=== PATIENT | male | born 1940 | race Caucasian/White ===

== ENCOUNTER → 2016-09-23 | Outpatient (CLI) | payer MEDICARE ==
[~2016-09-23] MED LIST: ASP81TEC PO; BENA10TA PO; CEPH500C PO; CLOP75TA PO; DICL75TA2 PO; FLUT16SP22 NSEACH; HYDR-34 PO; PRAV40TA PO; PRAV80TA2 PO; PRV20T PO; TAMS0.4C2 PO; TRAM50TA2 PO
[2016-09-23 07:53] LABS: BASOPHILS # (AUTO) 0.1 10^3/uL (0.0-0.1); BASOPHILS % (AUTO) 1 % (0-10); EOSINOPHILS % (AUTO) 0 % (0-10); LYMPHOCYTES # (AUTO) 2.7 X 10^3 (1.0-4.0); LYMPHOCYTES % (AUTO) 26 % (12-44); MEAN CORPUSCULAR HEMOGLOBIN 32 PG (25-34); MEAN CORPUSCULAR HGB CONC 35 G/DL (32-36); MEAN CORPUSCULAR VOLUME 93 FL (80-99); MEAN PLATELET VOLUME 8.7 FL (7.4-10.4); MONOCYTES % (AUTO) 10 % (0-12); NEUTROPHILS # (AUTO) 6.8 X 10^3 (1.8-7.8); NEUTROPHILS % (AUTO) 64 % (42-75); PLATELET COUNT 310 10^3/uL (130-400); RED BLOOD COUNT 4.56 10^6/uL (4.35-5.85); RED CELL DISTRIBUTION WIDTH 12.8 % (10.0-14.5); WHITE BLOOD COUNT 10.6 10^3/uL (4.3-11.0)
[2016-09-23 08:13] LABS: ALANINE AMINOTRANSFERASE 73 U/L (0-55); ALBUMIN 4.1 G/DL (3.2-4.5); ANION GAP 10 MMOL/L (5-14); ASPARTATE AMINO TRANSFERASE 45 U/L (5-34); BILIRUBIN,TOTAL 0.9 MG/DL (0.1-1.0); BLOOD UREA NITROGEN 16 MG/DL (7-18); BUN/CREATININE RATIO 16; CALCIUM 9.6 MG/DL (8.5-10.1); CARBON DIOXIDE 23 MMOL/L (21-32); CHLORIDE 106 MMOL/L (98-107); CHOLESTEROL 115 MG/DL (< 200); CREATININE SERUM 0.98 MG/DL (0.60-1.30); DIRECT LDL 56 MG/DL (1-129); GFR ESTIMATED > 60; GLUCOSE 104 MG/DL (70-105); POTASSIUM 4.2 MMOL/L (3.6-5.0); SODIUM 139 MMOL/L (135-145); TOTAL PROTEIN 6.9 G/DL (6.4-8.2); TRIGLYCERIDES 123 MG/DL (<150); VLDL CHOLESTEROL 25 MG/DL (5-40)
[2016-09-23 12:11] LABS: THYROID STIMULATING HORMONE 2.22 UIU/ML (0.35-4.94)
== END ==
LOC: LAB 07:15
PROVIDERS: ATTEND Internal Medicine
DX: Z00.00 Encounter for general adult medical examination without abnormal findings (principal); E78.1 Pure hyperglyceridemia; R73.9 Hyperglycemia, unspecified; E03.9 Hypothyroidism, unspecified
CPT/HCPCS: 36415; 80053; 80061; 83036; 84443; 85025

== ENCOUNTER → 2016-10-14 | Outpatient (CLI) | payer MEDICARE ==
[2016-10-14 08:40] LABS: ALANINE AMINOTRANSFERASE 31 U/L (0-55); ANION GAP 7 MMOL/L (5-14); ASPARTATE AMINO TRANSFERASE 23 U/L (5-34); BILIRUBIN,TOTAL 0.9 MG/DL (0.1-1.0); BLOOD UREA NITROGEN 18 MG/DL (7-18); BUN/CREATININE RATIO 21; CARBON DIOXIDE 23 MMOL/L (21-32); CHLORIDE 108 MMOL/L (98-107); CHOLESTEROL 115 MG/DL (< 200); CREATININE SERUM 0.87 MG/DL (0.60-1.30); DIRECT LDL 48 MG/DL (1-129); GFR ESTIMATED > 60; GLUCOSE 100 MG/DL (70-105); POTASSIUM 4.1 MMOL/L (3.6-5.0); SODIUM 138 MMOL/L (135-145); TOTAL PROTEIN 6.2 G/DL (6.4-8.2); TRIGLYCERIDES 168 MG/DL (<150); VLDL CHOLESTEROL 34 MG/DL (5-40)
== END ==
LOC: LAB 08:08
PROVIDERS: ATTEND Nurse Practitioner Family
DX: E78.5 Hyperlipidemia, unspecified (principal)
CPT/HCPCS: 36415; 80053; 80061

== ENCOUNTER → 2017-03-26 | Outpatient (CLI) | payer MEDICARE ==
[2017-03-26 09:20] LABS: ALANINE AMINOTRANSFERASE 28 U/L (0-55); ALBUMIN 3.9 GM/DL (3.2-4.5); ANION GAP 7 MMOL/L (5-14); ASPARTATE AMINO TRANSFERASE 25 U/L (5-34); BILIRUBIN,TOTAL 1.1 MG/DL (0.1-1.0); BLOOD UREA NITROGEN 16 MG/DL (7-18); BUN/CREATININE RATIO 14; CALCIUM 9.1 MG/DL (8.5-10.1); CARBON DIOXIDE 23 MMOL/L (21-32); CHLORIDE 109 MMOL/L (98-107); CHOLESTEROL 127 MG/DL (< 200); CREATININE SERUM 1.11 MG/DL (0.60-1.30); DIRECT LDL 58 MG/DL (1-129); GFR ESTIMATED > 60; GLUCOSE 93 MG/DL (70-105); POTASSIUM 4.3 MMOL/L (3.6-5.0); SODIUM 139 MMOL/L (135-145); TOTAL PROTEIN 6.3 GM/DL (6.4-8.2); TRIGLYCERIDES 122 MG/DL (<150); VLDL CHOLESTEROL 24 MG/DL (5-40)
== END ==
LOC: LAB 08:18
PROVIDERS: ATTEND Internal Medicine
DX: E78.1 Pure hyperglyceridemia (principal); R73.9 Hyperglycemia, unspecified; E78.00 Pure hypercholesterolemia, unspecified
CPT/HCPCS: 36415; 80053; 80061; 83036

== ENCOUNTER 2017-05-15 23:30 | Emergency (ER) | payer MEDICARE ==
[~2017-05-15] VITALS: Ht 172.7 cm; Wt 95.3 kg
[2017-05-15 23:51] VITALS: BP 143/84
== END 2017-05-15 23:51 | disposition left against medical advice (07) ==
LOC: EDUNIT# 23:30 → ER 23:32
DX: T83.018A Breakdown (mechanical) of other urinary catheter, initial encounter (principal)
CPT/HCPCS: 99281

== ENCOUNTER → 2017-06-08 | Outpatient (CLI) | payer MEDICARE ==
[2017-06-08 09:44] LABS: ALANINE AMINOTRANSFERASE 32 U/L (0-55); ALBUMIN 3.8 GM/DL (3.2-4.5); ALKALINE PHOSPHATASE 119 U/L (40-136); BUN/CREATININE RATIO 12; CALCIUM 9.1 MG/DL (8.5-10.1); CARBON DIOXIDE 24 MMOL/L (21-32); CHLORIDE 107 MMOL/L (98-107); CHOLESTEROL 127 MG/DL (< 200); CREATININE SERUM 1.07 MG/DL (0.60-1.30); GFR ESTIMATED > 60; GLUCOSE 103 MG/DL (70-105); HDL CHOLESTEROL 42 MG/DL (40-60); POTASSIUM 4.2 MMOL/L (3.6-5.0); SODIUM 141 MMOL/L (135-145); TOTAL PROTEIN 6.3 GM/DL (6.4-8.2); TRIGLYCERIDES 139 MG/DL (<150); VLDL CHOLESTEROL 28 MG/DL (5-40)
== END ==
LOC: LAB 09:02
PROVIDERS: ATTEND Nurse Practitioner Family
DX: E78.4 Other hyperlipidemia (principal); I10 Essential (primary) hypertension
CPT/HCPCS: 36415; 80053; 80061

== ENCOUNTER → 2017-10-05 | Outpatient (CLI) | payer MEDICARE ==
[2017-10-05 08:30] LABS: BASOPHILS % (AUTO) 1 % (0-10); EOSINOPHILS % (AUTO) 0 % (0-10); HEMATOCRIT 39 % (40-54); LYMPHOCYTES # (AUTO) 2.5 X 10^3 (1.0-4.0); LYMPHOCYTES % (AUTO) 39 % (12-44); MEAN CORPUSCULAR HEMOGLOBIN 33 PG (25-34); MEAN CORPUSCULAR HGB CONC 36 G/DL (32-36); MEAN CORPUSCULAR VOLUME 93 FL (80-99); MEAN PLATELET VOLUME 8.9 FL (7.4-10.4); MONOCYTES # (AUTO) 0.6 X 10^3 (0.0-1.0); MONOCYTES % (AUTO) 9 % (0-12); NEUTROPHILS # (AUTO) 3.3 X 10^3 (1.8-7.8); NEUTROPHILS % (AUTO) 51 % (42-75); PLATELET COUNT 262 10^3/uL (130-400); RED BLOOD COUNT 4.23 10^6/uL (4.35-5.85); RED CELL DISTRIBUTION WIDTH 12.5 % (10.0-14.5); WHITE BLOOD COUNT 6.4 10^3/uL (4.3-11.0)
[2017-10-05 08:54] LABS: ALANINE AMINOTRANSFERASE 26 U/L (0-55); ALBUMIN 4.4 GM/DL (3.2-4.5); ALKALINE PHOSPHATASE 90 U/L (40-136); BILIRUBIN,TOTAL 1.6 MG/DL (0.1-1.0); BUN/CREATININE RATIO 21; CALCIUM 9.6 MG/DL (8.5-10.1); CARBON DIOXIDE 23 MMOL/L (21-32); CHLORIDE 110 MMOL/L (98-107); CHOLESTEROL 126 MG/DL (< 200); CREATININE SERUM 1.15 MG/DL (0.60-1.30); GFR ESTIMATED > 60; GLUCOSE 103 MG/DL (70-105); HDL CHOLESTEROL 45 MG/DL (40-60); POTASSIUM 4.5 MMOL/L (3.6-5.0); SODIUM 140 MMOL/L (135-145); TOTAL PROTEIN 6.5 GM/DL (6.4-8.2); TRIGLYCERIDES 126 MG/DL (<150); VLDL CHOLESTEROL 25 MG/DL (5-40)
== END ==
LOC: LAB 07:47
PROVIDERS: ATTEND Internal Medicine
DX: Z00.00 Encounter for general adult medical examination without abnormal findings (principal); E78.1 Pure hyperglyceridemia; E78.00 Pure hypercholesterolemia, unspecified; R73.9 Hyperglycemia, unspecified
CPT/HCPCS: 36415; 80053; 80061; 83036; 84443; 85025

== ENCOUNTER → 2018-04-05 | Outpatient (CLI) | payer MEDICARE ==
[2018-04-05 09:29] LABS: BUN/CREATININE RATIO 17; CALCIUM 9.7 MG/DL (8.5-10.1); CARBON DIOXIDE 22 MMOL/L (21-32); CHLORIDE 108 MMOL/L (98-107); GFR ESTIMATED > 60; GLUCOSE 103 MG/DL (70-105); POTASSIUM 4.4 MMOL/L (3.6-5.0); SODIUM 138 MMOL/L (135-145)
[2018-04-05 09:30] LABS: ALANINE AMINOTRANSFERASE 29 U/L (0-55); ALBUMIN 4.3 GM/DL (3.2-4.5); ALKALINE PHOSPHATASE 85 U/L (40-136); BILIRUBIN,TOTAL 1.5 MG/DL (0.1-1.0); CHOLESTEROL 142 MG/DL (< 200); HDL CHOLESTEROL 46 MG/DL (40-60); TOTAL PROTEIN 6.5 GM/DL (6.4-8.2); TRIGLYCERIDES 117 MG/DL (<150); VLDL CHOLESTEROL 23 MG/DL (5-40)
== END ==
LOC: LAB 08:44
PROVIDERS: ATTEND Internal Medicine
DX: Z00.00 Encounter for general adult medical examination without abnormal findings (principal); E78.00 Pure hypercholesterolemia, unspecified; E78.1 Pure hyperglyceridemia; R73.9 Hyperglycemia, unspecified
CPT/HCPCS: 36415; 80053; 80061; 83036

== ENCOUNTER → 2019-01-23 | Outpatient (CLI) | payer MEDICARE ==
[~2019-01-23] VITALS: Ht 172.7 cm; Wt 93.9 kg
[~2019-01-23] MED LIST changes: +CATHETER FLUSH 10 ML SYR IV PRN; +REGADENOSON 0.4 MG/5 ML SYR (LEXISCAN) IV ONE
[2019-01-23 09:24] VITALS: BP 130/80
[2019-01-23 09:26] VITALS: BP 143/77
--- NOTE | 2019-01-24 10:59 | STRESS TEST ---
DATE OF SERVICE: 01/23/2019 RESTING AND POST REGADENOSON TECHNETIUM-99M TETROFOSMIN SPECT CT IMAGING ORDERING PHYSICIAN: Corinne Singh APRN PRIMARY PHYSICIAN: Dr. Palafox. CLINICAL DIAGNOSES: Coronary artery disease. Baseline images were carried out after injection of 10.71 mCi of technetium-99m Tetrofosmin. This was followed by 0.4 mg regadenoson and 31 mCi of technetium-99m Tetrofosmin for stress imaging. The electrocardiogram showed sinus rhythm at baseline. There was incomplete right bundle branch block. The electrocardiogram did not change significantly with regadenoson infusion. Review of images at rest and following stress indicates some diaphragmatic attenuation seen both at rest and following regadenoson infusion. Gated images show normal regional wall motion, including the diaphragmatic wall of the left ventricle. Left ventricular ejection fraction is calculated to be 72%. Left ventricular end diastolic volume is 82 mL. TID is absent (1.04). CONCLUSIONS: 1. No evidence of significant myocardial ischemia or infarction on this study. 2. Normal regional wall motion. 3. Normal global left ventricular systolic function with a calculated ejection fraction of 72%. Job ID: [id number] DocumentID: [id number] Dictated Date: 01/24/2019 09:49:31 Packaging Technician Date: 01/24/2019 10:58:00 Dictated By: MARINO ARENAS MD, MA, FACP, FACC,
== END ==
LOC: CARD 07:08
PROVIDERS: ATTEND Nurse Practitioner Family
DX: I25.10 Atherosclerotic heart disease of native coronary artery without angina pectoris (principal); I24.0 Acute coronary thrombosis not resulting in myocardial infarction; I65.29 Occlusion and stenosis of unspecified carotid artery; E78.5 Hyperlipidemia, unspecified; I10 Essential (primary) hypertension
CPT/HCPCS: 78452; 93017

== ENCOUNTER → 2020-02-15 | Outpatient (CLI) | payer MEDICARE ==
[~2020-02-15] MED LIST changes: -CATHETER FLUSH 10 ML SYR IV PRN; -REGADENOSON 0.4 MG/5 ML SYR (LEXISCAN) IV ONE
--- NOTE | 2020-02-15 14:21 | Diagnostic Imaging Report ---
INDICATION: Chronic low back pain. TIME OF EXAM: 12:59 PM AP view of pelvis demonstrates a normal femoral acetabular alignment. Femoral head and neck are intact. Rami appear intact. No fractures are seen. Laminectomy changes lower lumbar spine are noted. IMPRESSION: No acute bony abnormality is detected. Dictated by: Dictated on workstation # [id number]
--- NOTE | 2020-02-15 14:40 | Diagnostic Imaging Report ---
INDICATION: Prior history of lumbar spine surgery with continued low back pain. TIME OF EXAM: 12:54 PM AP, lateral as well as flexion-extension views of the lumbar spine were obtained. Postop changes of decompression laminectomy L3-L5 are noted. There is normal lordotic curvature. Vertebral body heights are maintained. No acute compression fracture is seen. There is multilevel degenerative disc disease with variable disc space narrowing and marginal spurring. No definite motion is identified during flexion or extension maneuvers. Aorta is heavily calcified. IMPRESSION: Lumbar spondylosis. No acute bony abnormality is detected. No abnormal motion during flexion or extension maneuvers is identified. Dictated by: Dictated on workstation # [id number]
--- NOTE | 2020-02-15 14:44 | Diagnostic Imaging Report ---
PROCEDURE: MRI lumbar spine. TECHNIQUE: Multiplanar, multisequence MRI of the lumbar spine was performed without contrast. INDICATION: Chronic low back pain. History of prior lumbar spine surgery. COMPARISON: MRI lumbar spine without contrast 02/28/2016. FINDINGS: Grade 1 anterolisthesis of L4 on L5 and grade 1 retrolisthesis of L5 on S1. Alignment is otherwise unremarkable. Vertebral body heights are preserved. Moderate diffuse degenerative endplate changes including Modic type I degenerative endplate changes at L4-S1. Scattered small Schmorl's nodes. Postoperative findings of laminectomies at L3 through L5. No abnormal signal in the conus which terminates at L1. Normal morphology of the cauda equina. The visualized paravertebral soft tissues are unremarkable. L1-L2: Annular disc bulge and facet arthropathy result in moderate left and mild right lateral recess narrowing. There is mild spinal canal narrowing. Disc space height loss also contributes to amrrrmys-vc-kqutvd bilateral neural foraminal narrowing. L2-L3: Annular disc bulge results in mild spinal canal and moderate bilateral lateral recess narrowing. Facet arthropathy and disc space height loss result in severe left and moderate right neural foraminal narrowing. L3-L4: Spinal canal is decompressed well. Facet arthropathy, osteophytic ridging and disc space height loss results in severe left and moderate right neural foraminal narrowing. L4-L5: Spinal canal is decompressed well. Advanced facet arthropathy. Rutsfhjn-jm-nkubuk bilateral neural foraminal narrowing. L5-S1: Disc osteophyte complex and facet arthropathy result in moderate bilateral lateral recess narrowing. Spinal canal is decompressed well. Severe left and moderate right neural foraminal narrowing. IMPRESSION: 1. Laminectomies at L3 through L5 have been performed since the prior exam. The spinal canal is decompressed well at these levels. 2. Multilevel high-grade lateral recess and neural foraminal narrowing detailed above level by level. No high-grade spinal canal stenosis. 3. No acute osseous findings. Dictated by: Dictated on workstation # [id number]
== END ==
LOC: RAD 12:30
PROVIDERS: ATTEND Registered Nurse
DX: M96.1 Postlaminectomy syndrome, not elsewhere classified (principal); M48.061 Spinal stenosis, lumbar region without neurogenic claudication; M25.78 Osteophyte, vertebrae; M47.816 Spondylosis without myelopathy or radiculopathy, lumbar region
CPT/HCPCS: 72114; 72148; 72170

== ENCOUNTER 2020-08-21 06:28 | Outpatient (CLI) | payer MEDICARE ==
[~2020-08-21] VITALS: Ht 172.7 cm; Wt 84.9 kg
[~2020-08-21 06:28] MED LIST changes: +ACHD5005 PO; +ASPI-1238 PO; +ATOR40TA70 PO; +BIMA2.5D4 OD; +CIME200T14 PO; +CLOP75TA28 PO; +FINA5TAB6 PO; +LEVO50CA4 PO; +LEVO50TA6 PO; +LOSA50TA63 PO; +OXYM15SP42 NSEACH; +PANT40TA2 PO; +PRAM0.12 PO; +TMSL.4C PO
[2020-08-21] MEDS ORDERED: LEVO75TA6 PO (12:17)
== END 2020-08-21 13:49 | disposition home or self-care (01) ==
LOC: PREOP 06:28
PROVIDERS: ATTEND Surgery
DX: Z01.818 Encounter for other preprocedural examination (principal)

== ENCOUNTER 2020-08-27 11:16 | Day surgery (SDC) | payer MEDICARE ==
[2020-08-27] VITALS (20 sets, daily range): BP systolic 121–178; BP diastolic 61–97
[~2020-08-27] VITALS: Ht 172.7 cm; Wt 84.9 kg
[~2020-08-27 11:16] MED LIST changes: +LEVO75TA6 PO; +NS IV 500 ML 500 ML ONE
[2020-08-27] MEDS ORDERED: fentaNYL INJ 100 MCG/2 ML AMP IVP ONE (11:30)
[2020-08-27] MEDS ORDERED: HURRICAINE EXT TUBE (BENZOCAINE) XX PRN (11:30)
[2020-08-27] MEDS ORDERED: MIDAZOLAM 5 MG/5 ML (VERSED) VIAL IV ONE (11:30)
[2020-08-27] MEDS ORDERED: LIDOCAINE JELLY 2% 6 ML SYRINGE MM PRN (11:30)
[2020-08-27] MEDS: NS IV 500 ML 500 ML IV PRN ×2 (11:38→14:11)
--- NOTE | 2020-08-27 11:46 | Conscious Sedation/ASA ---
Conscious Sedation Pre-Proced Time 11:30 ASA Score 2 For ASA 3 and 4: Consider anesthesia and medical clearance. Also, for patients with a history of failed moderate sedation consider anesthesia. Airway Lungs Heart ASA score ASA 1: a normal healthy patient ASA 2: a patient with a mild systemic disease (mid diabetes, controlled hypertension, obesity ASA 3: a patient with a severe systemic disease that limits activity (angina, COPD, prior Myocardial infarction) ASA 4: a patient with an incapacitating disease that is a constant threat to life (CHF, renal failure) ASA 5: a moribund patient not expected to survive 24 hrs. (ruptured aneurysm) ASA 6: a declared brain- patient whose organs are being harvested. For emergent operations, add the letter E after the classification Mallampati Classification Grade 2 Sedation Plan Analgesia, Amnesia, Plan communicated to team members, Discussed options with patient/fam, Discussed risks with patient/fam The patient is an appropriate candidate to undergo the planned procedure, sedation, and anesthesia. The patient immediately re-assessed prior to indication. SANJAY MACDONALD MD Aug 27, 2020 11:46
--- NOTE | 2020-08-27 11:47 | Progress Note-Pre Operative ---
Pre-Operative Progress Note H&P Reviewed The H&P was reviewed, patient examined and no changes noted. Date Seen by Provider: Aug 27, 2020 Time Seen by Provider: 11:30 Date H&P Reviewed: Aug 27, 2020 Time H&P Reviewed: 11:30 Pre-Operative Diagnosis: anemia, fatigue, hx SANJAY Nolasco MD Aug 27, 2020 11:47
--- NOTE | 2020-08-27 11:48 | Discharge Inst-Surgical ---
D/C Lap Instructions-TORRES Follow Up Appt in 2 weeks Activity as tolerated High Fiber Diet 25g or more per day Avoid Alcohol, Caffeine, Spicy [place] and Acid foods. Drink 64 fluid oz or more of fluids per day. Symptoms to Report: Fever over 101 degree F, Nausea/Vomiting If any problems/questions: Contact your physician or go to Emergency Room SANJAY MACDONALD MD Aug 27, 2020 11:48
[2020-08-27] MEDS ORDERED: ACETAMINOPHEN 325 MG TABLET PO PRN (12:00)
[2020-08-27] MEDS ORDERED: HYDROcodone/APAP 5 MG/325 MG (LORTAB) TAB PO PRN (12:00)
[2020-08-27] MEDS ORDERED: morphine INJ 10 MG/ML 1ML (SYR OR VIAL) IVP PRN ×2 (12:00)
[2020-08-27] MEDS ORDERED: ONDANSETRON 4 MG/2 ML (SDV) Z0FRAN IVP PRN (12:00)
[2020-08-27] MEDS ORDERED: HURRICAINE EXT TUBE (BENZOCAINE) ONE (12:39)
[2020-08-27] MEDS ORDERED: LIDOCAINE JELLY 2% 6 ML SYRINGE ONE (12:39)
[2020-08-27] MEDS ORDERED: fentaNYL INJ 100 MCG/2 ML AMP ONE ×2 (12:40→12:41)
[2020-08-27] MEDS ORDERED: MIDAZOLAM 5 MG/5 ML (VERSED) VIAL ONE ×2 (12:40→12:41)
[2020-08-27] MEDS ORDERED: NS IV 500 ML 500 ML ONE (14:02)
--- NOTE | 2020-08-27 15:11 | Progress Note-Post Operative ---
Post-Operative Progess Note Surgeon (s)/Internet Marketing Executive (s) Surgeon SANJAY MACDONALD MD Internet Marketing Executive: none Pre-Operative Diagnosis anemia, fatigue, hx covid Post-Operative Diagnosis reflux esophagitis(stage 2), moderate gastritis with multiple small healed antral erosions. chronic stage 2 ext and int hemorrhoids, mod-severe sigmoid diverticulosis, polyp prox transverse colon(3mm) Procedure & Operative Findings Date of Procedure 08/27/20 Procedure Performed/Findings EGD with bx. colonoscopy with forcep polypectomy. Anesthesia Type cs Estimated Blood Loss Estimated blood loss (mL): minimal Specimens/Packing Specimens Removed ge jxn, antrum, transverse colon polyp SANJAY MACDONALD MD Aug 27, 2020 15:11
--- NOTE | 2020-08-27 19:47 | OPERATIVE REPORT ---
DATE OF SERVICE: 08/27/2020 ATTENDING PRIMARY CARE PHYSICIAN: Dr. Cheyanne Palafox. PREOPERATIVE DIAGNOSES: Convalescent SARS COVID-19 hospitalization in early June 2020 with anemia. POSTOPERATIVE DIAGNOSES: Reflux esophagitis stage II, multiple small healed antral erosions, no active bleeding. Chronic stage II external and internal hemorrhoids, mmayvuet-lq-gxtwzl sigmoid diverticulosis. Small polyp of the proximal transverse colon. PROCEDURE: EGD with biopsy, colonoscopy with forceps polypectomy and cautery. SURGEON: Sanjay Velasquez MD. ANESTHESIA: Conscious sedation. ESTIMATED BLOOD LOSS: Minimal. FINDINGS: Reflux esophagitis stage II, multiple small healed antral erosions, no active bleeding. Chronic stage II external and internal hemorrhoids, alojnard-cd-rhrdsh sigmoid diverticulosis. Small polyp of the proximal transverse colon. DISPOSITION: The patient tolerated the procedure well. INDICATIONS: The patient is a 79-year-old male who contracted the SARS coronavirus-19 virus and was hospitalized 07/03/2020 during that admission and he did not require intubation; however, was found to be significantly anemic requiring 5 units of packed red blood cells. After being discharged home and in the convalescent phase, his latest hemoglobin was 10. He did remember that during his time in the hospital, he had significant dark tarry stools. He also does report a history of gastroesophageal reflux disease. DESCRIPTION OF PROCEDURE: The patient was brought to the endoscopy suite, laid in the left lateral decubitus position. After adequate IV pain and sedative medications and conscious sedation anesthesia, the mouthpiece was applied. The endoscope was placed in the mouth, visualizing the pharynx and hypopharyngeal region. Vocal cords, epiglottis and vallecula identified and appeared to be normal. The endoscope was then gently intubated into the esophageal opening and esophagus insufflated. The endoscope was then advanced to the first, second and third portion of esophagus at the level of GE junction, reflux esophagitis stage II identified. There were no ulcers or strictures identified in this region. A biopsy was taken with forceps with visualization of good hemostasis. The endoscope was then advanced into the stomach and endoscope retroflexed visualizing no hiatal hernia. There were multiple small antral erosions. There appeared to be healed; however, this was likely because of anemia and gastrointestinal bleeding during his admission. A biopsy was taken of one of these areas with forceps to rule out H. pylori with visualization of good hemostasis. Endoscope was then advanced to the pylorus and the first and second portion of the duodenum, which appeared normal with no ulcerations or any active bleeding. The endoscope was then slowly withdrawn while taking a second look and suctioning of residual air with no additional findings. We then proceeded with colonoscopy portion of the procedure. Digital rectal examination was performed, which revealed mild chronic stage II external and internal hemorrhoids, not actively edematous nor inflamed, no bleeding. Normal sphincter tone was felt and there were no palpable masses. Prostate gland was palpable and appeared normal. The endoscope was then intubated and anus and rectum gently insufflated. The endoscope was then advanced through the valves of Parmar of the rectum with no polyps or any neoplasms identified. Through the sigmoid colon, a moderate to severe sigmoid diverticulosis identified. There were no mucosal inflammatory changes to indicate any active diverticulitis. There was also no bleeding. The endoscope was then advanced through the descending and to the proximal transverse colon where a small polyp approximately 3 mm in size was identified. This was biopsied and destroyed using forceps and electrocautery with visualization of good hemostasis. Endoscope was then advanced through the ascending colon to the cecum, which appeared normal. The endoscope was then slowly withdrawn while taking a second look and suctioning of residual air with no additional findings. The patient tolerated the procedure well. We will recommend the necessary lifestyle and diet accommodation including small and more frequent meals, avoidance of eating at night as well as head elevation while lying supine. He also needs to avoid caffeinated beverages, spicy, greasy and acidic foods. He is also on Protonix 40 mg daily, which we will recommend that he continue to take. We will also recommend a high fiber diet with addition of fiber supplementation to equal or exceed 30 grams daily as well as significant amounts of water to promote soft stools on a daily basis and prevent any complications related to his diverticulosis. Job ID: [id number] DocumentID: [id number] Dictated Date: 08/27/2020 15:00:30 Supervisor Park Workers Date: 08/27/2020 19:46:30 Dictated By: SANJAY VELASQUEZ MD
== END 2020-08-27 16:10 | disposition home or self-care (01) ==
LOC: ENDO 11:16
PROVIDERS: ATTEND Surgery
DX: D12.3 Benign neoplasm of transverse colon (principal); K64.1 Second degree hemorrhoids; K21.00 Gastro-esophageal reflux disease with esophagitis, without bleeding; K29.50 Unspecified chronic gastritis without bleeding; K57.30 Diverticulosis of large intestine without perforation or abscess without bleeding; I25.10 Atherosclerotic heart disease of native coronary artery without angina pectoris; D64.9 Anemia, unspecified; Z79.899 Other long term (current) drug therapy; Z88.8 Allergy status to other drugs, medicaments and biological substances
CPT/HCPCS: 88305

== ENCOUNTER 2020-10-24 12:13 | Outpatient (CLI) | payer MEDICARE ==
[~2020-10-24 12:13] MED LIST changes: -NS IV 500 ML 500 ML ONE
[2020-10-24] MEDS ORDERED: IRON SUCROSE 200 MG/10 ML (VENOFER) VIAL IV ONE ×2 (12:25→12:45)
[2020-10-24 13:48] VITALS: BP 144/67
== END 2020-10-24 13:48 | disposition home or self-care (01) ==
LOC: SDC 12:13
PROVIDERS: ATTEND Internal Medicine
DX: E61.1 Iron deficiency (principal)
CPT/HCPCS: 96365

== ENCOUNTER → 2021-10-13 | Outpatient (CLI) | payer MEDICARE ==
[~2021-10-13] MED LIST changes: -CIME200T14 PO; +CIME200T90 PO
--- NOTE | 2021-10-13 11:46 | Diagnostic Imaging Report ---
INDICATION: Left hip pain. EXAMINATION: Left hip, 2 views. FINDINGS: The femoral head is in normal articulation with the acetabulum. The joint space is well-maintained. The articulating surfaces are smooth. There are no fractures. No hypertrophic bony changes. No soft tissue calcifications. The SI joint is normal where visualized. IMPRESSION: Normal left hip. Dictated by: Dictated on workstation # [id number]
== END ==
LOC: RAD 09:34
PROVIDERS: ATTEND Internal Medicine
DX: M25.552 Pain in left hip (principal)
CPT/HCPCS: 73502

== ENCOUNTER → 2021-11-03 | Outpatient (CLI) | payer MEDICARE ==
[~2021-11-03] MED LIST changes: +CATHETER FLUSH 10 ML SYR IVP PRN; +REGADENOSON 0.4 MG/5 ML SYR (LEXISCAN) IV ONE
[2021-11-03 09:05] VITALS: BP 176/81
--- NOTE | 2021-11-03 18:04 | STRESS TEST ---
DATE OF SERVICE: 11/03/2021 RESTING AND POST REGADENOSON TECHNETIUM-99M TETROFOSMIN SPECT CT IMAGING ORDERING PHYSICIAN: Corinne Singh APRN PRIMARY PHYSICIAN: Dr. Palafox. CLINICAL DIAGNOSIS: Coronary artery disease. Baseline images were carried out after injection of 10.84 mCi of technetium-99m Tetrofosmin. This was followed by 0.4 mg regadenoson and 31.5 mCi of technetium-99m Tetrofosmin for stress imaging. The electrocardiogram showed sinus rhythm at baseline. It did not change significantly with the regadenoson infusion. The patient tolerated the procedure well. He noted mild dizziness, which resolved in a few minutes. Review of images at rest and following stress does not indicate any distinct perfusion defects consistent with significant myocardial ischemia or infarction. Some degree of diaphragmatic attenuation is seen both at rest and following regadenoson infusion. Gated images show normal global left ventricular systolic function with normal regional wall motion, including the diaphragmatic wall of the left ventricle. Left ventricular ejection fraction is calculated to be 68%. CONCLUSIONS: 1. No evidence of significant myocardial ischemia or infarction on this study. 2. Normal regional wall motion. 3. Normal global left ventricular systolic function with a calculated ejection fraction of 68%. Job ID: [id number] DocumentID: [id number] Dictated Date: 11/03/2021 14:42:08 Experimental Outboard Motors Mechanic Date: 11/03/2021 18:03:46 Dictated By: MARINO ARENAS MD, MA, FACP, FACC,
== END ==
LOC: CARD 08:00
PROVIDERS: ATTEND Nurse Practitioner Family
DX: I25.10 Atherosclerotic heart disease of native coronary artery without angina pectoris (principal)
CPT/HCPCS: 78452; 93017; A9502

== ENCOUNTER → 2022-06-15 | Outpatient (CLI) | payer MEDICARE ==
[~2022-06-15] MED LIST changes: -CATHETER FLUSH 10 ML SYR IVP PRN; -REGADENOSON 0.4 MG/5 ML SYR (LEXISCAN) IV ONE
== END ==
LOC: CARD 12:04
PROVIDERS: ATTEND Nurse Practitioner Family
DX: I51.7 Cardiomegaly (principal); I35.1 Nonrheumatic aortic (valve) insufficiency
CPT/HCPCS: 93306

== ENCOUNTER 2022-09-29 07:17 | Emergency (ER) | payer MEDICARE ==
[~2022-09-29] VITALS: Ht 172.7 cm; Wt 83.5 kg
[2022-09-29] MEDS ORDERED: NS IV 500 ML 500 ML IV SCH ×2 (10:55→11:45)
[2022-09-29] MEDS ORDERED: NS IV 500 ML 500 ML ONE (10:58)
--- NOTE | 2022-09-29 11:19 | ED General ---
General Stated Complaint: BILAT LEGS CRAMPING Source of Information: Patient Exam Limitations: No Limitations History of Present Illness Date Seen by Provider: September 29, 2022 Time Seen by Provider: 09:22 Initial Comments 09/29/2022@0922 This 81-year-old male presents with the leg cramps that have been intermittent over the last several weeks but much worse over the last few nights. He does not report any injury. He reports that he does have leg swelling problems and has been placed on triamterene hydrochlorothiazide combination and has had his losartan increased to [address] Frank. Reports that he has been drinking Gatorade. Patient's family reports that he is quite active and he is here with his and daughter. They both report that he is walking appropriately. Daughter mentions that he does get injections to the hip for sciatic problems. He apparently has had laminectomy L3-L5 and since then he has to have intermittent injections. Last injection was 1 week ago. He denies bowel or bladder problems otherwise but does state that he has had intermittent diarrhea especially over the last couple of days. Denies sensation issues. I did review past medical history and surgical history as well as complete medication list. Timing/Duration: 2-3 Days Severity: Moderate Associated Systoms: No Chest Pain, No Shortness of Air Allergies and Home Medications Allergies Coded Allergies: eptifibatide (Verified Allergy, Mild, 10/30/11) Patient Home Medication List Home Medication List Reviewed: Yes Atorvastatin Calcium (Atorvastatin Calcium) 40 Mg Tablet, 40 MG PO DAILY, (Reported) Entered as Reported by: PARKER LENNON on 07/03/20 1625 Bimatoprost (Lumigan) 2.5 Ml Drops, 1 DROP OD HS, (Reported) Entered as Reported by: DAVID YAP on 07/04/20 0833 Finasteride (Finasteride) 5 Mg Tablet, 5 MG PO DAILY Prescribed by: HOLLY LEONE on 07/07/20 1045 Hydrocodone Bit/Acetaminophen (HYDROcodone/APAP 5 MG/325 MG TAB) 1 Tab Tab, 1 TAB PO Q4H PRN for PAIN-MODERATE (5-7) Prescribed by: HOLLY LEONE on 07/07/20 1046 Levothyroxine Sodium (Levothyroxine Sodium) 75 Mcg Tablet, 75 MCG PO DAILY, (Reported) Entered as Reported by: RAQUEL QUAN on 08/21/20 1217 Losartan Potassium (Losartan Potassium) 50 Mg Tablet, 50 MG PO DAILY, (Reported) Entered as Reported by: PARKER LENNON on 07/03/20 1625 Oxymetazoline HCl (Vicks Sinex) 15 Ml [place], 2-3 SPRAYS NSEACH Q12H PRN for CONGESTION, (Reported) Entered as Reported by: DAVID YAP on 07/04/20 0833 Pantoprazole Sodium (Protonix) 40 Mg Tablet.dr, 40 MG PO BID Prescribed by: HOLLY LEONE on 07/07/20 1045 Pramipexole (Mirapex) 0.125 Mg Tablet, 0.125 MG PO HS Prescribed by: HOLLY LEONE on 07/07/20 1045 Tamsulosin HCl (Flomax) 0.4 Mg Cap, 0.4 MG PO DAILY, (Reported) Entered as Reported by: DAVID YAP on 07/04/20 0833 Review of Systems Review of Systems Constitutional: No chills, No fever EENTM: nose congestion, other (Watery eyes) Respiratory: No cough, No short of breath Cardiovascular: No chest pain; edema (Intermittent but gone now) Gastrointestinal: No nausea, No vomiting Genitourinary: no symptoms reported Musculoskeletal: muscle pain, muscle cramps; No muscle weakness Skin: no symptoms reported Psychiatric/Neurological: Denies Weakness Past Dkedjty-Eihhrv-Tylhin Hx Patient Social History Tobacco Use?: No Use of E-Cig and/or Vaping dev: No Substance use?: No Alcohol Use?: No Immunizations Up To Date Tetanus Booster (TDap): More than 5yrs Seasonal Allergies Seasonal Allergies: Yes Past Medical History Surgeries: Yes (ROTATOR CUFF REPAIR,CARPAL TUNNEL, L3-L5, ANTERIOR APPROACH NECK SURGERY) Coronary Stent, Orthopedic Respiratory: No Cardiac: Yes Coronary Artery Disease, High Cholesterol, Hypertension Neurological: No Neuropathy Reproductive Disorders: No Genitourinary: Yes Benign Prostatic Hyperpl Gastrointestinal: No Musculoskeletal: Yes (L3-L5) Degenerate Disk Disease, Arthritis, Chronic Back Pain Endocrine: No Hypothyroidsim HEENT: Yes (BILTERAL, LASER SURGERIES) Cataract Cancer: No Psychosocial: No Integumentary: No Blood Disorders: No Adverse Reaction/Blood Tranf: No Family Medical History Reviewed Nursing Family Hx Physical Exam Vital Signs Capillary Refill : Height, Weight, BMI Height: 5'8.00" Weight: 207lbs. 0.0oz. 93.155486dh; 28.46 BMI Method:Stated General Appearance: No Apparent Distress, WD/WN HEENT: PERRL/EOMI, Pharynx Normal Neck: Non Tender, Supple Respiratory: Lungs Clear, Normal Breath Sounds Cardiovascular: Regular Rate, Rhythm, No Murmur Gastrointestinal: Non Tender, Soft Back: Normal Inspection, No CVA Tenderness, No Vertebral Tenderness, Other (Patient able to walk without difficulty using his cane and with slight limp otherwise. This is normal. No sensation issues noted or reported.) Extremity: Normal Range of Motion, Non Tender, No Calf Tenderness, No Pedal Edema Neurologic/Psychiatric: Alert, Oriented x3, No Motor/Sensory Deficits Skin: Normal Color, Warm/Dry Progress/Results/Core Measures Suspected Sepsis SIRS Temperature: Pulse: Respiratory Rate: Blood Pressure / Mean: Results/Orders Vital Signs/I&O Capillary Refill : Progress Note : Progress Note Seen and evaluated. IV, labs including CBC, CMP and magnesium ordered. Monitor patient. Differential diagnosis includes electrolyte abnormality and dehydration 1028: CBC is grossly normal. Pending CMP and mag studies. 1115: CMP is grossly normal although total bili is slightly over normal. Magnesium is normal. Serum creatinine 1.21. We will go ahead and give normal saline 500 mL bolus. I do believe that some of his issues may be related to dehydration as family is stating that he does not drink well and patient admits that. We will have him change his triamterene HCTZ medication dosing to every third day instead of every other day. He does have appointment with Dr Frank next week and he will discuss this with him as well. I will send a copy of the note to Dr. Leone, patient's PCP. Discharged home with return precautions. Patient and family verbalized understanding instructions and agreement with plan. Departure Impression Primary Impression: Leg cramping Additional Impression: Dehydration Disposition: 01 HOME, SELF-CARE Condition: Improved Departure-Patient Inst. Decision time for Depature: 11:18 Referrals: HOLLY LEONE DO (PCP/Family) Primary Care Physician Patient Instructions: Nocturnal (Nighttime) Leg Cramps, Dehydration, Adult (DC) Add. Discharge Instructions: Follow-up with Dr Frank next week as scheduled. Follow-up with Dr. Leone for recheck and further evaluation as well. You may change your dose of your triamterene/HCTZ to 1 tablet every third day. Ensure that you are drinking an adequate amount of fluids and I suggest starting at around 6 glasses (48 ounces) daily. You may need to increase this especially with activity. Continue to use topical agents as discussed such as the diclofenac cream and IcyHot or Aspercreme. Return for worse pain, weakness, numbness between your legs, difficulty with walking or going to the bathroom, swelling or other concerns as needed. Copy Copies To 1: HOLLY LEONE TIMOTHY D MD September 29, 2022 11:19
[2022-09-29 11:34] LABS: ALBUMIN 4.5 GM/DL (3.2-4.5); BILIRUBIN,TOTAL 1.2 MG/DL (0.1-1.0); CREATININE SERUM 1.21 MG/DL (0.60-1.30); MAGNESIUM 1.9 MG/DL (1.6-2.4); POTASSIUM 4.3 MMOL/L (3.6-5.0)
[2022-09-29 11:40] VITALS: BP 144/66
[2022-09-29 11:59] LABS: HEMATOCRIT 35 % (40-54); HEMOGLOBIN 12.5 g/dL (13.3-17.7); MEAN CORPUSCULAR HEMOGLOBIN 33 pg (25-34); MEAN CORPUSCULAR HGB CONC 35 g/dL (32-36); MEAN CORPUSCULAR VOLUME 94 fL (80-99); MEAN PLATELET VOLUME 9.4 fL (9.0-12.2); PLATELET COUNT 269 10^3/uL (130-400)
== END 2022-09-29 11:40 | disposition home or self-care (01) ==
LOC: EDUNIT# 07:17 → ER 07:19
DX: R25.2 Cramp and spasm (principal); E86.0 Dehydration; I10 Essential (primary) hypertension; Z79.899 Other long term (current) drug therapy
CPT/HCPCS: 36415; 80053; 83735; 85027

== ENCOUNTER 2022-11-27 17:05 | Emergency (ER) | payer MEDICARE ==
[~2022-11-27] VITALS: Ht 172 cm; Wt 84.5 kg
--- NOTE | 2022-11-27 17:26 | ED Lower Extremity ---
General Chief Complaint: Lower Extremity Stated Complaint: RIGHT LEG PAIN Source: patient Exam Limitations: no limitations History of Present Illness Date Seen by Provider: Nov 27, 2022 Time Seen by Provider: 17:23 Initial Comments Patient is a 82-year-old male who presents ED with right lower leg pain. Patient states this morning he woke up and worked in the garden. He had no specific injury to his right leg. Went inside started having a cramping pain to his right calf, right anterior tib-fib. Describes as more squeezing sensation. Worse with walking. Noted a area of redness to the frontal part of his beltran. Denies of any specific injury. Denies history of similar type pain. No recent travels or surgeries. Denies blood thinner use. Denies history of DVT. Normal active range of motion of the knee and ankle. Did take Tylenol and ibuprofen at home without much improvement. Denies of any swelling or bruising. Patient denies chest pain, cough, shortness of breath, fever, chills, body aches Allergies and Home Medications Allergies Coded Allergies: eptifibatide (Verified Allergy, Mild, 10/30/11) Patient Home Medication List Home Medication List Reviewed: Yes Atorvastatin Calcium (Atorvastatin Calcium) 40 Mg Tablet, 40 MG PO DAILY, (Reported) Entered as Reported by: PARKER LENNON on 07/03/20 1625 Bimatoprost (Lumigan) 2.5 Ml Drops, 1 DROP OD HS, (Reported) Entered as Reported by: DAVID YAP on 07/04/20 0833 Finasteride (Finasteride) 5 Mg Tablet, 5 MG PO DAILY Prescribed by: HOLLY LEONE on 07/07/20 1045 Hydrocodone Bit/Acetaminophen (HYDROcodone/APAP 5 MG/325 MG TAB) 1 Tab Tab, 1 TAB PO Q4H PRN for PAIN-MODERATE (5-7) Prescribed by: HOLLY LEONE on 07/07/20 1046 Levothyroxine Sodium (Levothyroxine Sodium) 75 Mcg Tablet, 75 MCG PO DAILY, (Reported) Entered as Reported by: RAQUEL QUAN on 08/21/20 1217 Losartan Potassium (Losartan Potassium) 50 Mg Tablet, 50 MG PO DAILY, (Reported) Entered as Reported by: PARKER LENNON on 07/03/20 1625 Methocarbamol (Methocarbamol) 500 Mg Tablet, 500 MG PO Q6-8HR Prescribed by: ROMEO JACKSON on 11/27/22 1900 Oxymetazoline HCl (Vicks Sinex) 15 Ml [place], 2-3 SPRAYS NSEACH Q12H PRN for CONGESTION, (Reported) Entered as Reported by: DAVID YAP on 07/04/20 0833 Pantoprazole Sodium (Protonix) 40 Mg Tablet.dr, 40 MG PO BID Prescribed by: HOLLY LEONE on 07/07/20 1045 Pramipexole (Mirapex) 0.125 Mg Tablet, 0.125 MG PO HS Prescribed by: HOLLY LEONE on 07/07/20 1045 Tamsulosin HCl (Flomax) 0.4 Mg Cap, 0.4 MG PO DAILY, (Reported) Entered as Reported by: DAVID YAP on 07/04/20 0833 Review of Systems Constitutional: No chills, No diaphoresis, No fever, No malaise, No weakness EENTM: No hearing loss, No ear pain, No blurred vision Respiratory: No cough, No dyspnea on exertion Cardiovascular: No chest pain Gastrointestinal: No abdominal pain, No diarrhea, No nausea, No vomiting Genitourinary: No decreased output, No discharge Musculoskeletal: No back pain, No joint pain; muscle pain Skin: change in color All Other Systems Reviewed Negative Unless Noted: Yes Past Uzmcdns-Vgknjp-Ymcrol Hx Immunizations Up To Date Tetanus Booster (TDap): More than 5yrs Seasonal Allergies Seasonal Allergies: Yes Past Medical History Surgeries: Yes (ROTATOR CUFF REPAIR,CARPAL TUNNEL, L3-L5, ANTERIOR APPROACH NECK SURGERY) Coronary Stent, Orthopedic Respiratory: No Cardiac: Yes Coronary Artery Disease, High Cholesterol, Hypertension Neurological: No Neuropathy Reproductive Disorders: No Genitourinary: Yes Benign Prostatic Hyperpl Gastrointestinal: No Musculoskeletal: Yes (L3-L5) Degenerate Disk Disease, Arthritis, Chronic Back Pain Endocrine: No Hypothyroidsim HEENT: Yes (BILTERAL, LASER SURGERIES) Cataract Cancer: No Psychosocial: No Integumentary: No Blood Disorders: No Adverse Reaction/Blood Tranf: No Physical Exam Vital Signs Vital Signs - First Documented 11/27/22 11/27/22 17:11 19:14 Temp 36.5 Pulse 76 Resp 18 B/P (MAP) 121/103 (109) Pulse Ox 97 O2 Delivery Room Air Capillary Refill : Height, Weight, BMI Height: 5'8.00" Weight: 207lbs. 0.0oz. [id number]; 27.00 BMI Method:Stated General Appearance: WD/WN, no apparent distress HEENT: PERRL/EOMI, normal ENT inspection, TMs normal, pharynx normal Neck: non-tender, full range of motion, supple, normal inspection Cardiovascular: regular rate, rhythm, no edema, no gallop, no JVD Respiratory: chest non-tender, lungs clear, normal breath sounds, no respiratory distress, no accessory muscle use Gastrointestinal: normal bowel sounds, non tender, soft Legs: right leg other (Tenderness to palpate right anterior mid beltran. Area of small erythema to the mid lower beltran. Mild calf tenderness. No bruising or swelling. Cap refill less than 2. Dorsalis pedis palpable, posterior tibialis palpable +2.) Knees: bilateral knee non-tender, bilateral knee normal inspection, bilateral knee normal range of motion Ankles: bilateral ankle non-tender, bilateral ankle normal inspection, bilateral ankle normal range of motion Feet: bilateral foot non-tender, bilateral foot normal inspection, bilateral foot normal range of motion Neurologic/Psychiatric: resin painter II-XII nml as tested, no motor/sensory deficits, alert, normal mood/affect, oriented x 3 Skin: other (Quarter size erythema to right lower mid beltran. No fluctuant mass. No tenderness to palpate) Progress/Results/Core Measures Results/Orders Lab Results Laboratory Tests Test 11/27/22 17:30 Range/Units White Blood Count 9.1 4.3-11.0 10^3/uL Red Blood Count 3.30 L 4.30-5.52 10^6/uL Hemoglobin 11.1 L 13.3-17.7 g/dL Hematocrit 31 L 40-54 % Mean Corpuscular Volume 95 80-99 fL Mean Corpuscular Hemoglobin 34 25-34 pg Mean Corpuscular Hemoglobin Concent 36 32-36 g/dL Red Cell Distribution Width 12.2 10.0-14.5 % Platelet Count 253 130-400 10^3/uL Mean Platelet Volume 9.0 9.0-12.2 fL Immature Granulocyte % (Auto) 0 % Neutrophils (%) (Auto) 69 42-75 % Lymphocytes (%) (Auto) 22 12-44 % Monocytes (%) (Auto) 8 0-12 % Eosinophils (%) (Auto) 0 0-10 % Basophils (%) (Auto) 1 0-10 % Neutrophils # (Auto) 6.2 1.8-7.8 10^3/uL Lymphocytes # (Auto) 2.0 1.0-4.0 10^3/uL Monocytes # (Auto) 0.8 0.0-1.0 10^3/uL Eosinophils # (Auto) 0.0 0.0-0.3 10^3/uL Basophils # (Auto) 0.1 0.0-0.1 10^3/uL Immature Granulocyte # (Auto) 0.0 0.0-0.1 10^3/uL D-Dimer 0.76 H 0.00-0.49 UG/ML Sodium Level 138 135-145 MMOL/L Potassium Level 3.6 3.6-5.0 MMOL/L Chloride Level 107 98-107 MMOL/L Carbon Dioxide Level 19 L 21-32 MMOL/L Anion Gap 12 5-14 MMOL/L Blood Urea Nitrogen 17 7-18 MG/DL Creatinine 1.52 H 0.60-1.30 MG/DL Estimat Glomerular Filtration Rate 46 BUN/Creatinine Ratio 11 Glucose Level 97 70-105 MG/DL Calcium Level 8.9 8.5-10.1 MG/DL Corrected Calcium 8.9 8.5-10.1 MG/DL Magnesium Level 1.6 1.6-2.4 MG/DL Total Bilirubin 0.7 0.1-1.0 MG/DL Aspartate Amino Transf (AST/SGOT) 27 5-34 U/L Alanine Aminotransferase (ALT/SGPT) 22 0-55 U/L Alkaline Phosphatase 141 H 40-136 U/L Total Protein 6.3 L 6.4-8.2 GM/DL Albumin 4.0 3.2-4.5 GM/DL My Orders Orders - SOWMYA ZIMMER Fibrin Degradation Products (11/27/22 17:21) Cbc With Automated Diff (11/27/22 17:21) Comprehensive Metabolic Panel (11/27/22 17:21) Magnesium (11/27/22 17:21) Hydrocodone/Apap 5/325 Tablet (Lortab 5 (11/27/22 17:30) Tibia/Fibula, Right, 2 Views (11/27/22 17:23) Us Venous Lower Ext Rt (11/27/22 17:56) Ns Iv 1000 Ml (Sodium Chloride 0.9%) (11/27/22 17:58) Orphenadrine Inj (Ed Only) (Norflex Inje (11/27/22 19:00) Rx-Hydrocodone/Apap 5-325 Mg (Rx-Vicodin (11/27/22 19:15) Medications Given in ED Vital Signs/I&O 11/27/22 11/27/22 17:11 19:14 Temp 36.5 Pulse 76 71 Resp 18 20 B/P (MAP) 121/103 (109) 129/59 Pulse Ox 97 98 O2 Delivery Room Air Departure Communication (PCP) Reviewed previous ER visits, H&P, lab testing. Patient Was seen here in September for leg cramps. Patient complaining of right leg pain since today after working in the garden. Reports twitching, cramping and spasming. Does have a small localized area of erythema to the anterior lower tib-fib. No area of inoculation. No tenderness to palpate. Does not necessarily look infectious at this time. Calf tenderness on exam. CBC, CMP, mag and D-dimer was ordered. Denies chest pain or shortness of breath. Slight elevated D-dimer. Ultrasound was able to come in and perform ultrasound which was negative for DVT. Does have good cap refill less than 2 , dorsalis pedis and posterior tibialis +2. Normal active range of motion the right knee and ankle. Due to the area of pain and location x-ray was ordered which did not show any acute fracture. CBC was grossly unremarkable with a hemoglobin 11. Had a slight change in his kidney function of a GFR 46, creatinine 1.52. Magnesium and electrolytes were normal. Did receive 1 L of fluid. Patient has been working outside. Does not appear hypovolemic. Patient is not tachycardic. He is not febrile. Patient did receive a dose of hydrocodone and Norflex. Appears to be more muscle spasming and muscle cramps. Likely from overuse. Discussed Voltaren gel, aspirin cream, stretching, heat. We will provide a few days worth of Robaxin only as needed for muscle spasming. Discussed carefully taking this medication. Recommend an ti-inflammatories for pain. If any worsening symptoms such as redness, swelling bruising to this area to return back to ED. Patient and family agree with plan of action Impression Primary Impression: Leg pain Additional Impression: Acute kidney insufficiency Disposition: 01 HOME, SELF-CARE Condition: Stable Departure-Patient Inst. Decision time for Depature: 18:30 Referrals: HOLLY LEONE DO (PCP/Family) Primary Care Physician Patient Instructions: Leg Muscle Strain ED Add. Discharge Instructions: Recommend staying hydrated. Continue drinking plenty of fluids. Recommend topical Voltaren gel or Aspercreme for the leg pain. Take Robaxin muscle relaxer as needed. Hydrocodone only as needed if pain gets worse. Recommend stretching, warm compresses. Return back to ED if symptoms worsen All discharge instructions reviewed with patient and/or family. Voiced understanding. Scripts Methocarbamol (Methocarbamol) 500 Mg Tablet 500 MG PO Q6-8HR for leg spasm, #16 TAB Prov: SOWMYA ZIMMER 11/27/22 SOWMYA ZIMMER Nov 27, 2022 17:26
[2022-11-27] MEDS ORDERED: HYDROcodone/APAP 5 MG/325 MG (LORTAB) TAB PO ONE (17:30)
[2022-11-27 17:38] LABS: BASOPHILS # (AUTO) 0.1 10^3/uL (0.0-0.1); BASOPHILS % (AUTO) 1 % (0-10); EOSINOPHILS % (AUTO) 0 % (0-10); HEMATOCRIT 31 % (40-54); HEMOGLOBIN 11.1 g/dL (13.3-17.7); LYMPHOCYTES % (AUTO) 22 % (12-44); MEAN CORPUSCULAR HEMOGLOBIN 34 pg (25-34); MEAN CORPUSCULAR HGB CONC 36 g/dL (32-36); MEAN CORPUSCULAR VOLUME 95 fL (80-99); MONOCYTES # (AUTO) 0.8 10^3/uL (0.0-1.0); MONOCYTES % (AUTO) 8 % (0-12); NEUTROPHILS # (AUTO) 6.2 10^3/uL (1.8-7.8); NEUTROPHILS % (AUTO) 69 % (42-75); PLATELET COUNT 253 10^3/uL (130-400); WHITE BLOOD COUNT 9.1 10^3/uL (4.3-11.0)
[2022-11-27 17:46] LABS: POTASSIUM 3.6 MMOL/L (3.6-5.0)
--- NOTE | 2022-11-27 17:46 | Diagnostic Imaging Report ---
EXAMINATION: Right tibia and fibula radiographs, 2 views, 3 images. COMPARISON: None. HISTORY: 82-year-old male, right lower leg pain. FINDINGS: There is chondrocalcinosis. There is moderate to severe medial compartment joint space loss of the right knee. There is no identified acute fracture. There is no cortical or aggressive bone destruction. There is no periosteal reaction. There is no identified radiopaque foreign body. IMPRESSION: 1. No acute bony abnormality of the right tibia or fibula. 2. Severe medial compartment osteoarthritis of the right knee. Dictated by: Dictated on workstation # [id number]
[2022-11-27 17:47] LABS: CALCIUM 8.9 MG/DL (8.5-10.1)
[2022-11-27 17:48] LABS: TOTAL PROTEIN 6.3 GM/DL (6.4-8.2)
[2022-11-27 17:50] LABS: BILIRUBIN,TOTAL 0.7 MG/DL (0.1-1.0)
[2022-11-27 17:52] LABS: CREATININE SERUM 1.52 MG/DL (0.60-1.30)
[2022-11-27 17:54] LABS: MAGNESIUM 1.6 MG/DL (1.6-2.4)
[2022-11-27] MEDS ORDERED: NS IV 1000 ML 1,000 ML IV STA (17:58)
[2022-11-27] MEDS ORDERED: ORPHENADRINE 60 MG/2 ML (NORFLEX) AMP (ED ONLY) IM ONE (19:00)
[2022-11-27] MEDS ORDERED: METH-731 PO (19:00)
[2022-11-27 19:14] VITALS: BP 129/59
--- NOTE | 2022-11-27 21:18 | Diagnostic Imaging Report ---
Procedure: US right lower extremity venous. Technique: Multiple real-time grayscale images were obtained over the right lower extremity in various projections. Additional spectral analysis and color Doppler duplex images were also obtained. Date: November 27, 2022. Indication: 82-year-old male, right leg pain. Comparison: Right tibia and fibula radiographs November 27, 2022. Findings: The right common femoral vein, right superficial femoral vein and right popliteal vein are all compressible with normal blood flow and response to augmentation. The visualized portions of the right greater saphenous vein and deep femoral vein are patent. The right posterior tibial and peroneal veins are patent. Impression: Negative for right lower extremity deep venous thrombosis. Dictated by: Dictated on workstation # [id number]
== END 2022-11-27 19:17 | disposition home or self-care (01) ==
LOC: EDUNIT# 17:05 → ER 17:07
DX: M79.661 Pain in right lower leg (principal); N28.9 Disorder of kidney and ureter, unspecified; R79.1 Abnormal coagulation profile
CPT/HCPCS: 36415; 73590; 80053; 83735; 85025; 85379

== ENCOUNTER 2022-12-22 05:32 | Outpatient (CLI) | payer MEDICARE ==
[~2022-12-22] VITALS: Ht 172.7 cm; Wt 84.1 kg
[~2022-12-22 05:32] MED LIST changes: +METH-731 PO
[2022-12-22] MEDS ORDERED: ASPI-999 PO (14:21)
[2022-12-22] MEDS ORDERED: SENN-272 PO (14:21)
[2022-12-22] MEDS ORDERED: DICL75TA2 PO (14:21)
[2022-12-22] MEDS ORDERED: TRIA1CAP84 PO (14:21)
[2022-12-22] MEDS ORDERED: DIPH25TA49 PO (14:21)
[2022-12-22] MEDS ORDERED: OXYM30SP NS (14:21)
== END 2022-12-22 14:38 ==
LOC: PREOP 05:32
PROVIDERS: ATTEND Orthopaedic Surgery
DX: Z01.818 Encounter for other preprocedural examination (principal)

== ENCOUNTER 2022-12-29 08:13 | Day surgery (SDC) | payer MEDICARE ==
--- NOTE | 2022-12-22 08:28 | HISTORY AND PHYSICAL ---
Date of service and date of surgery will be 12/29/2022 for right cubital tunnel release/ulnar nerve transposition. HISTORY: The patient is an 82-year-old right hand dominant gentleman with complaints of right small finger and ring finger paresthesias and popping and snapping in his elbow. He reports difficulty with sensation in his right hand. He reports this has been worsening over the last several weeks. Due to functional impairment and failure to improve with conservative measures, the patient elected to proceed with surgical intervention. REVIEW OF SYSTEMS: No chest pain, no shortness of breath. No dysuria. PAST MEDICAL HISTORY: Hypertension, TIA, allergies, coronary artery disease, lumbar stenosis. PAST SURGICAL HISTORY: Coronary stent placement, anterior cervical fusion, right rotator cuff repair, right carpal tunnel, tonsillectomy, lumbar decompression. FAMILY HISTORY: Diabetes. SOCIAL HISTORY: The patient denies alcohol and tobacco use. PRIMARY CARE PROVIDER: Dr. Palafox. MEDICATIONS: Flomax, levothyroxine, aspirin, diclofenac, atorvastatin, finasteride, Protonix, pramipexole, Euthyrox and Cozaar. ALLERGIES: INTEGRILIN. PHYSICAL EXAM: The patient is well-developed, well-nourished, in no acute distress. HEENT: Normocephalic, atraumatic. Pupils equal, round, reactive to light. Oropharynx is clear. NECK: Supple. No lymphadenopathy. LUNGS: Clear to auscultation bilaterally. HEART: Regular rate and rhythm. ABDOMEN: Soft, nontender, nondistended. EXTREMITIES: Right elbow demonstrates tenderness at his cubital tunnel with positive elbow flexion test, positive Tinel's of carpal tunnel, subluxation is noted of the nerve to the medial epicondyle. He has decreased sensation in ulnar distribution with weakness with finger abduction. IMPRESSION: Left cubital tunnel syndrome. PLAN: Left cubital tunnel release with possible ulnar nerve transposition. The risks, benefits, options, ramifications and recovery were discussed at length with the patient. He understands and wishes to proceed. This will be for outpatient surgery on 12/29/2022. Job ID: [id number] DocumentID: [id number] Dictated Date: 12/14/2022 14:51:24 Social Insurance Adviser Date: 12/14/2022 15:09:00 Dictated By: MITCHELL MULLINS MD
--- NOTE | 2022-12-22 08:28 | HISTORY AND PHYSICAL ---
ADMISSION HISTORY AND PHYSICAL This will be for outpatient surgery on 12/29/2022 for left rotator cuff repair. HISTORY OF PRESENT ILLNESS: The patient is an 82-year-old right hand dominant gentleman with complaints of progressively worsening left shoulder pain and weakness. He underwent an MRI, which reveals a massive rotator cuff tear. He reports pain, weakness and activity disruption due to the symptoms. Because of this, the patient has elected to proceed with surgical intervention. He understands that this may not fully return to full function because of the massive nature of his tear. REVIEW OF SYSTEMS: No chest pain, no shortness of breath. No dysuria. PAST MEDICAL HISTORY: Hypertension, TIA, coronary artery disease, coronary stent placement, lumbar stenosis. PAST SURGICAL HISTORY: Right wrist, right shoulder, tonsillectomy, right carpal tunnel, right rotator cuff repair, stent placement, anterior fusion of C5-C6, C6-C7 and L3 through L5 laminectomy. FAMILY HISTORY: Significant for diabetes. PRIMARY CARE PROVIDER: Dr. Palafox. MEDICATIONS: Flomax, Refresh, levothyroxine, aspirin, diclofenac, atorvastatin, finasteride, Protonix, pramipexole, Euthyrox and Cozaar. ALLERGIES: INTEGRILIN. SOCIAL HISTORY: The patient denies alcohol and tobacco use. PHYSICAL EXAMINATION: GENERAL: The patient is well-developed, well-nourished, in no acute distress. HEENT: Normocephalic, atraumatic. Pupils are equal, round, reactive to light. Oropharynx is clear. NECK: Supple, with no lymphadenopathy. LUNGS: Clear to auscultation bilaterally. HEART: Regular rate and rhythm. ABDOMEN: Soft, nontender, nondistended. EXTREMITIES: Left shoulder demonstrates active forward elevation 80 degrees, passive 160. He has weakness with external rotation and with abduction. IMPRESSION: Large left rotator cuff tear. PLAN: Left shoulder arthroscopy with rotator cuff repair. The risks, benefits, options, ramifications and recovery were discussed at length with the patient. He understands and wishes to proceed. Job ID: [id number] DocumentID: [id number] Dictated Date: 12/14/2022 11:38:06 Litigation Coordinator Date: 12/14/2022 12:45:00 Dictated By: MITCHELL MULLINS MD
[~2022-12-29] VITALS: Ht 172.7 cm; Wt 84.1 kg
[2022-12-29] VITALS (10 sets, daily range): BP systolic 114–153; BP diastolic 56–98
[~2022-12-29 08:13] MED LIST changes: +ASPI-999 PO; +DIPH25TA49 PO; +HYDROcodone/ACETAMINOPHEN 7.5 MG/325 MG TABLET PO PRN; +OXYM30SP NS; +SENN-272 PO; +TRIA1CAP84 PO
[2022-12-29] MEDS ORDERED: fentaNYL INJECTION 100 MCG/2 ML VIAL ONE (08:55)
[2022-12-29] MEDS ORDERED: ceFAZolin INJECTION 2,000 MG in NS (IVPB) 50 ML 50 ML IV ONE (09:00)
[2022-12-29] MEDS ORDERED: BUPIVACAINE 0.5% 30 ML VIAL ONE (09:07)
[2022-12-29] MEDS: LACTATED RINGERS 1,000 ML IV PRN ×2 (09:10→10:44)
--- NOTE | 2022-12-29 09:49 | Progress Note-Pre Operative ---
Pre-Operative Progress Note Date of Available H&P: Dec 22, 2022 Date H&P Reviewed: Dec 29, 2022 Time H&P Reviewed: 07:11 Changes from last HP none Pre-Operative Diagnosis: right cubital tunnel syndrome MITCHELL MULLINS MD Dec 29, 2022 09:49
--- NOTE | 2022-12-29 09:50 | Progress Note-Post Operative ---
Post-Operative Progess Note Surgeon (s)/Set Up And Lay Out Inspector (s) Surgeon MITCHELL MULLINS MD Set Up And Lay Out Inspector: Ezequiel Chavira Pre-Operative Diagnosis right cubital tunnel syndrome Post-Operative Diagnosis right cubital tunnel syndrome Procedure & Operative Findings Date of Procedure 12/29/22 Procedure Performed/Findings right ulnar nerve transposition Anesthesia Type GETA Estimated Blood Loss Estimated blood loss (mL): minimal Specimens/Packing Specimens Removed none Packing: none MITCHELL MULLINS MD Dec 29, 2022 09:50
[2022-12-29] MEDS ORDERED: proPOfol 200 MG/20 ML (DIPRIVAN) VIAL IV ONE (10:23)
[2022-12-29] MEDS ORDERED: LIDOCAINE PF 2% 5 ML VIAL ONE (10:23)
[2022-12-29] MEDS ORDERED: ONDANSETRON 4 MG/2 ML (SDV) Z0FRAN ONE (10:23)
[2022-12-29] MEDS ORDERED: SEVOFLURANE (ULTANE) 15 ML INHAL SOLN ONE (10:32)
[2022-12-29] MEDS ORDERED: morphine INJ 10 MG/ML 1ML (SYR OR VIAL) IVP ONE (10:45)
[2022-12-29] MEDS ORDERED: ONDANSETRON 4 MG/2 ML (SDV) Z0FRAN IVP PRN (10:45)
--- NOTE | 2022-12-29 14:54 | Anesthesia-General Post-Op ---
General Patient Condition Mental Status/LOC: Same as Preop Cardiovascular: Satisfactory Nausea/Vomiting: Absent Respiratory: Satisfactory Pain: Controlled Complications: Absent Post Op Complications Complications None Follow Up Care/Instructions Patient Instructions None needed. Anesthesia/Patient Condition Patient Condition Patient is doing well, no complaints, stable vital signs, no apparent adverse anesthesia problems. No complications reported per nursing. JOANA CLARKE CRNA Dec 29, 2022 14:54
--- NOTE | 2022-12-29 17:41 | OPERATIVE REPORT ---
DATE OF SERVICE: 12/29/2022 PREOPERATIVE DIAGNOSIS: Right cubital tunnel syndrome. POSTOPERATIVE DIAGNOSIS: Right cubital tunnel syndrome. PROCEDURE: Right ulnar nerve transposition. SURGEON: Dusty Saha MD DIRECTOR INBOUND SALES: Ezequiel Chavira, who assisted throughout the procedure and closed the incision. ANESTHESIA: General endotracheal by Peter Valiente CRNA. TOURNIQUET TIME: 17 minutes at 250 mmHg. ESTIMATED BLOOD LOSS: Minimal. DRAINS: None. COMPLICATIONS: None. POSTOPERATIVE PLAN: Routine protocol. The patient was transferred to the recovery room awake and stable condition. STATEMENT OF MEDICAL NECESSITY: The patient is an 82-year-old right hand dominant gentleman with complaints of right hand pain and paresthesias. He had marked weakness with his intrinsic function of the right hand. He had difficulty with fine motor skills. He had a loss of sensation in ulnar distribution. He can demonstrate active subluxation of the nerve with flexion of the elbow. Due to functional impairment and failure to improve with conservative measures, the patient elected to proceed with surgical intervention. He understood that he may not regain function due to the dense nature of his findings. DESCRIPTION OF PROCEDURE: After risks and benefits of the procedure were discussed and questions were answered and informed consent was signed and placed on the chart, the operative site was confirmed in the preoperative holding area initialed by surgeon. The patient was then transferred to the operating room. After adequate levels of general endotracheal anesthetic were obtained, a timeout was called, confirming the operative site. The right upper extremity was prepped and draped in the usual sterile fashion. With arm elevated, tourniquet was inflated to 250 mmHg. Standard curved incision was made posterior to the medial epicondyle. The underlying soft tissues were carefully dissected. The ulnar nerve was identified and dissected [ ] proximal to the medial epicondyle through the cubital tunnel and into the flexor/pronator mass. The nerve subluxed with flexion and extension of the elbow. Therefore, a transposition was performed. A fascial flap was developed off the posterior aspect of the fascia of the medial epicondyle. A portion of the intermuscular septum was released proximally at the transposition site and then in the flexor/pronator. The nerve was transposed and then the fascial flap was sutured to the deep subcutaneous layer while carefully protecting the ulnar nerve. There was no kinking of the ulnar nerve and no entrapment of the ulnar nerve noted. The elbow was taken through range of motion with full motion noted with stable transposition noted. The tourniquet was deflated for a total tourniquet time of 17 minutes. Pressure was used for hemostasis. Wound was copiously irrigated. A 2-0 Vicryl was used to reapproximate subcutaneous tissue and skin was closed with 4-0 nylon in a running alternating horizontal mattress fashion. An incision was infiltrated with plain Marcaine. A soft dressing was applied and the patient was transferred to the recovery room awake and in stable condition. Job ID: [id number] DocumentID: [id number] Dictated Date: 12/29/2022 10:40:09 Superintendent Of Generation Date: 12/29/2022 17:39:00 Dictated By: DUSTY SAHA MD
== END 2022-12-29 13:00 | disposition home or self-care (01) ==
LOC: SDC 08:13
PROVIDERS: ATTEND Orthopaedic Surgery
DX: G56.21 Lesion of ulnar nerve, right upper limb (principal); Z95.5 Presence of coronary angioplasty implant and graft; M75.102 Unspecified rotator cuff tear or rupture of left shoulder, not specified as traumatic
CPT/HCPCS: 87081

== ENCOUNTER 2023-03-04 10:12 | Emergency (ER) | payer MEDICARE ==
[~2023-03-04] VITALS: Ht 165 cm; Wt 83.0 kg
[~2023-03-04 10:12] MED LIST changes: -HYDROcodone/ACETAMINOPHEN 7.5 MG/325 MG TABLET PO PRN
[2023-03-04 10:15] VITALS: BP 146/69
--- NOTE | 2023-03-04 10:41 | ED General ---
General Chief Complaint: Neurological Problems Stated Complaint: NUMBNESS IN HANDS Nursing Triage Note: PATIENT VERBALIZED NUMBNESS HEAD POSTERIOR LAST WEEK, STATES PAINFUL WHEN TURN HEAD TO THE RIGHT. PATIENT STATES HX OF NECK SURGERY. DENIES CONFUSION, DENIES FALL. Source of Information: Patient Exam Limitations: No Limitations History of Present Illness Date Seen by Provider: Mar 04, 2023 Time Seen by Provider: 10:20 Initial Comments 82-year-old male presents emergency department today for neck pain and numbness in his bilateral hands. He states the neck pain has been present for couple of months he has had numbness in his bilateral hands for the last week. He states that specifically painful to turn his head to the right side. He has had neck surgery with 3 screws remotely and denies any trauma. He denies any weakness in his hands bilaterally. "I am concerned I might break my neck." Specifically he relates this to the pain that he is having with his history of surgery. He wants to know that he is not going to break his neck before he has shoulder surgery next week. All other systems reviewed and negative except documented per HPI. Voice recognition software was used to help create this chart Allergies and Home Medications Allergies Coded Allergies: eptifibatide (Verified Allergy, Mild, BLOOD COUNT DROPS, 12/22/22) Patient Home Medication List Home Medication List Reviewed: Yes Aspirin (Aspirin) 81 Mg Tab.chew, 81 MG PO DAILY, (Reported) Entered as Reported by: AMINA MENDES on 12/22/22 142 Atorvastatin Calcium (Atorvastatin Calcium) 40 Mg Tablet, 40 MG PO DAILY, (Reported) Entered as Reported by: PARKER LENNON on 07/03/20 1625 Diclofenac Sodium (Diclofenac Sodium) 75 Mg Tablet.dr, 75 MG PO BID, (Reported) Entered as Reported by: AMINA MENDES on 12/22/22 1421 Diphenhydramine HCl (Allergy Medicine) Unknown Strength Tablet, Unknown Dose PO UD, (Reported) Entered as Reported by: AMINA MENDES on 12/22/22 1421 Finasteride (Finasteride) 5 Mg Tablet, 5 MG PO DAILY Prescribed by: HOLLY LEONE on 07/07/20 1045 Levothyroxine Sodium (Levothyroxine Sodium) 75 Mcg Tablet, 75 MCG PO DAILY, (Reported) Entered as Reported by: RAQUEL QUAN on 08/21/20 1217 Oxymetazoline HCl (Vicks Sinex) 15 Ml Steedman, 2-3 SPRAYS NSEACH Q12H PRN for CONGESTION, (Reported) Entered as Reported by: DAVID YAP on 07/04/20 0833 Oxymetazoline HCl (Sinus Nasal) 0.05 % Steedman, 30 ML NS UD, (Reported) Entered as Reported by: AMINA MENDES on 12/22/22 142 Pantoprazole Sodium (Protonix) 40 Mg Tablet.dr, 40 MG PO BID Prescribed by: HOLLY LEONE on 07/07/20 104 Pramipexole (Mirapex) 0.125 Mg Tablet, 0.125 MG PO HS Prescribed by: HOLLY LEONE on 07/07/20 1045 Sennosides/Docusate Sodium (Stool Softener Tablet) 8.6 Mg-50 Mg Tablet, 1 EACH PO UD, (Reported) Entered as Reported by: AMINA MENDES on 12/22/22 142 Tamsulosin HCl (Flomax) 0.4 Mg Cap, 0.4 MG PO DAILY, (Reported) Entered as Reported by: DAVID YAP on 07/04/20 0833 Triamterene/Hydrochlorothiazid (Triamterene-Hctz 37.5-25 mg Cp) 37.5 Mg-25 Mg Capsule, 1 EACH PO DAILY, (Reported) Entered as Reported by: AMINA MENDES on 12/22/22 142 Review of Systems Review of Systems Constitutional: see HPI Past Cfkeynh-Zupyxv-Reoiid Hx Patient Social History Tobacco Use?: No Use of E-Cig and/or Vaping dev: No Substance use?: No Alcohol Use?: No Immunizations Up To Date Tetanus Booster (TDap): More than 5yrs First/Initial COVID19 Vaccinat: 06/13/20 Second COVID19 Vaccination Levar: 09/29/20 Third COVID19 Vaccination Date: 04/07/21, 03/17/22/, 04/20 Seasonal Allergies Seasonal Allergies: Yes Past Medical History Surgery/Hospitalization HX: hypothyroid, high cholesterol, cad Surgeries: Yes (ROTATOR CUFF REPAIR,CARPAL TUNNEL, L3-L5, ANTERIOR APPROACH NECK SURGERY) Coronary Stent, Orthopedic Respiratory: 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) Currently Using CPAP: No Currently Using BIPAP: No Cardiac: Yes Coronary Artery Disease, High Cholesterol, Hypertension Neurological: Yes Neuropathy Reproductive Disorders: No Genitourinary: Yes Benign Prostatic Hyperpl Gastrointestinal: Yes Gastroesophageal Reflux Musculoskeletal: Yes (L3-L5) Degenerate Disk Disease, Arthritis, Chronic Back Pain Endocrine: No Hypothyroidsim HEENT: Yes (BILTERAL, LASER SURGERIES) Cataract Cancer: No Psychosocial: No Integumentary: No Blood Disorders: No Adverse Reaction/Blood Tranf: No Physical Exam Vital Signs Vital Signs - First Documented 03/04/23 10:15 Temp 36.6 Pulse 67 Resp 16 B/P (MAP) 146/69 (94) Pulse Ox 99 O2 Delivery Room Air Capillary Refill : Less Than 3 Seconds Height, Weight, BMI Height: 5'8.00" Weight: 207lbs. 0.0oz. [id number]; 30.00 BMI Method:Stated General Appearance: No Apparent Distress, WD/WN Eyes: Bilateral Eye Normal Inspection, Bilateral Eye PERRL, Bilateral Eye EOMI HEENT: Normal ENT Inspection, Pharynx Normal Neck: Normal Inspection, Supple, Other (Mild midline tenderness to palpation. Pain does increase with rotation of head to the right. ) Respiratory: Chest Non Tender, Lungs Clear, Normal Breath Sounds, No Accessory Muscle Use, No Respiratory Distress Cardiovascular: Regular Rate, Rhythm, No Murmur, Normal Peripheral Pulses Gastrointestinal: Normal Bowel Sounds, No Organomegaly, Non Tender, Soft Extremity: Normal Capillary Refill, Normal Inspection, Normal Range of Motion, Non Tender Neurologic/Psychiatric: No Motor/Sensory Deficits Skin: Normal Color, Warm/Dry Progress/Results/Core Measures Suspected Sepsis SIRS Temperature: Pulse: 67 Respiratory Rate: 16 Blood Pressure 146 /69 Mean: 94 Results/Orders My Orders Orders - LASHELL OWEN DO Ct Cervical Spine Wo (03/04/23 10:25) Vital Signs/I&O 03/04/23 10:15 Temp 36.6 Pulse 67 Resp 16 B/P (MAP) 146/69 (94) Pulse Ox 99 O2 Delivery Room Air Capillary Refill : Less Than 3 Seconds Blood Pressure Mean: 94 Departure Communication (Admissions) Patient is neurologically intact outside of some numbness in his right and left hand. It seems to be diffuse and not focal neurologic distribution. No significant point tenderness in his cervical spine and he is concerned about the hardware underlying. For that reason we got a CT scan which was negative for any acute abnormality. 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 I did independently review these images as well. He will be discharged in stable condition with supportive care. Impression Primary Impression: Neck pain Disposition: HOME, SELF-CARE Condition: Stable Departure-Patient Inst. Referrals: HOLLY LEONE DO (PCP/Family) Primary Care Physician Patient Instructions: Generalized Neck Pain, Neck Pain ED Add. Discharge Instructions: Perform gentle stretching exercises as shown. Follow-up with your primary doctor for discussion of further imaging. Return to the emergency department for any severe concerns. All discharge instructions reviewed with patient and/or family. Voiced understanding. LASHELL OWEN DO Mar 04, 2023 10:41
--- NOTE | 2023-03-04 10:55 | Diagnostic Imaging Report ---
PROCEDURE: CT cervical spine without contrast. TECHNIQUE: Multiple contiguous axial images were obtained through the cervical spine without the use of intravenous contrast. Sagittal and coronal reformations were then performed. Auto Exposure Controls were utilized during the CT exam to meet ALARA standards for radiation dose reduction. INDICATION: Neck pain with paresthesias. History of previous cervical fusion. COMPARISON: None. FINDINGS: The patient is status post previous anterior fusion of C3-C5. Humboldt screws appear well-seated. Anterior fusion plate is well-opposed to the vertebral column. Evaluation of static alignment shows mild grade 1 anterolisthesis at C2-C3, C6-C7, and C7-T1. Findings are presumed degenerative in nature. There is no evidence of jumped facets. Vertebral body heights are maintained. There is no acute fracture. No bony fragments are seen within the spinal canal. There are advanced multilevel degenerative changes. This consists of intervertebral disc height loss as well as multilevel anterior and posterior endplate osteophyte formations and multilevel facet arthropathy. Pre and paravertebral soft tissue structures are unremarkable. Note is made of bilateral calcified carotid atherosclerosis. Included portions of the lung apices are clear. IMPRESSION: 1. No acute fracture or dislocation of the cervical spine. 2. Advanced multilevel degenerative changes. 3. Postoperative changes of previous anterior fusion of C3-C5. No evidence of hardware compromise. Dictated by: Dictated on workstation # [id number]
== END 2023-03-04 11:40 | disposition home or self-care (01) ==
LOC: EDUNIT# 10:12 → ER 10:13
DX: M54.2 Cervicalgia (principal); R20.0 Anesthesia of skin; Z98.890 Other specified postprocedural states
CPT/HCPCS: 72125

== ENCOUNTER 2023-03-09 05:30 | Outpatient (CLI) | payer MEDICARE ==
[~2023-03-09] VITALS: Ht 172.7 cm; Wt 87.2 kg
[2023-03-09] MEDS ORDERED: ACHD5005 PO (10:42)
[2023-03-09] MEDS ORDERED: LOSA100T58 PO ×2 (10:42)
[2023-03-11] MEDS ORDERED: ACHD5005 PO ×2 (13:23)
[2023-03-11] MEDS ORDERED: FINA5TAB6 PO ×2 (13:23)
[2023-03-11] MEDS ORDERED: PANT40TA52 PO ×2 (13:23)
[2023-03-11] MEDS ORDERED: TRIA1TAB3 PO ×2 (13:23)
[2023-03-11] MEDS ORDERED: PRAM0.5T9 PO ×2 (13:23)
[2023-03-12] MEDS ORDERED: OXYC5TAB PO ×2 (11:29)
[2023-03-12] MEDS ORDERED: ACET-2267 PO ×2 (11:29)
== END 2023-03-10 09:05 | disposition home or self-care (01) ==
LOC: PREOP 05:30
PROVIDERS: ATTEND Orthopaedic Surgery
DX: Z01.818 Encounter for other preprocedural examination (principal)

== ENCOUNTER 2023-03-10 16:46 | Inpatient (IN) | payer MEDICARE ==
[~2023-03-10] VITALS: Ht 172.7 cm; Wt 79.5 kg
[~2023-03-10 16:46] MED LIST changes: +LOSA100T58 PO
[2023-03-10] MEDS ORDERED: PATIENT MAY USE OWN MEDS, ALL PO SCH (17:00)
[2023-03-10] MEDS ORDERED: ACETAMINOPHEN 325 MG TABLET PO PRN (17:00)
[2023-03-10] MEDS ORDERED: MELATONIN 3 MG TABLET PO PRN (17:00)
[2023-03-10] MEDS ORDERED: diphenhydrAMINE 25 MG TABLET PO PRN (17:00)
[2023-03-10] MEDS ORDERED: ONDANSETRON INJECTION 4 MG/2 ML (SDV) IV PRN (17:00)
[2023-03-10] MEDS ORDERED: LACTULOSE SYRUP 10GM/15ML 30ML UDC PO PRN (17:00)
[2023-03-10] MEDS ORDERED: ANTACID SUSPENSION 30 ML UDC PO PRN (17:00)
[2023-03-10] MEDS ORDERED: MILK OF MAGNESIA 400 MG/5 ML 30 ML UDC PO PRN (17:00)
[2023-03-10] MEDS ORDERED: ONDANSETRON 4 MG ORAL DISSOLVE TABLET PO PRN (17:00)
[2023-03-10] MEDS ORDERED: CALCIUM CARBONATE 500 MG CHEW TABLET PO PRN (17:00)
[2023-03-10] MEDS ORDERED: diphenhydrAMINE INJ 50 MG/ML VIAL IVP PRN (17:00)
[2023-03-10] MEDS ORDERED: diazePAM INJ 10 MG/2 ML syringe IVP PRN (17:00)
[2023-03-10] MEDS ORDERED: BISACODYL 10 MG SUPPOSITORY PR PRN (17:00)
--- NOTE | 2023-03-10 17:28 | Diagnostic Imaging Report ---
INDICATION: Dyspnea. Comparison is made with prior exam of 07/03/2020. FINDINGS: The heart size, mediastinal configuration, and pulmonary vascularity are within normal limits. There is no pleural effusion, pneumothorax, or pneumonia. The osseous structures are unremarkable. IMPRESSION: No acute cardiopulmonary abnormality. Dictated by: Dictated on workstation # [id number]
[2023-03-10 17:42] LABS: BASOPHILS # (AUTO) 0.1 10^3/uL (0.0-0.1); BASOPHILS % (AUTO) 1 % (0-10); EOSINOPHILS % (AUTO) 0 % (0-10); HEMATOCRIT 32 % (40-54); HEMOGLOBIN 11.1 g/dL (13.3-17.7); LYMPHOCYTES # (AUTO) 2.1 10^3/uL (1.0-4.0); LYMPHOCYTES % (AUTO) 28 % (12-44); MEAN CORPUSCULAR HEMOGLOBIN 33 pg (25-34); MEAN CORPUSCULAR HGB CONC 35 g/dL (32-36); MEAN CORPUSCULAR VOLUME 95 fL (80-99); MEAN PLATELET VOLUME 9.1 fL (9.0-12.2); MONOCYTES # (AUTO) 0.7 10^3/uL (0.0-1.0); MONOCYTES % (AUTO) 9 % (0-12); NEUTROPHILS # (AUTO) 4.7 10^3/uL (1.8-7.8); NEUTROPHILS % (AUTO) 62 % (42-75); PLATELET COUNT 276 10^3/uL (130-400); WHITE BLOOD COUNT 7.5 10^3/uL (4.3-11.0)
[2023-03-10] MEDS: diazePAM 5 MG TABLET PO PRN (18:00)
[2023-03-10 18:01] LABS: PROTHROMBIN TIME PATIENT 13.4 SEC (12.2-14.7)
[2023-03-10 18:04] LABS: FIBRIN DEGRADATION PRODUCTS 0.83 UG/ML (0.00-0.49)
[2023-03-10 18:06] LABS: ALANINE AMINOTRANSFERASE 32 U/L (0-55); ALBUMIN 4.3 GM/DL (3.2-4.5); ALKALINE PHOSPHATASE 145 U/L (40-136); BILIRUBIN,TOTAL 1.4 MG/DL (0.1-1.0); BUN/CREATININE RATIO 21; CALCIUM 9.3 MG/DL (8.5-10.1); CARBON DIOXIDE 19 MMOL/L (21-32); CHLORIDE 108 MMOL/L (98-107); CREATINE KINASE 149 U/L (30-200); CREATININE SERUM 1.18 MG/DL (0.60-1.30); GFR ESTIMATED 62; GLUCOSE 90 MG/DL (70-105); POTASSIUM 4.2 MMOL/L (3.6-5.0); SODIUM 138 MMOL/L (135-145); TOTAL PROTEIN 6.6 GM/DL (6.4-8.2)
[2023-03-10 18:08] VITALS: BP 158/69
[2023-03-10 18:09] VITALS: BP 158/69
[2023-03-10 18:26] LABS: TSH (THYROID ANALYZER) 1.69 UIU/ML (0.35-4.94)
[2023-03-10 18:29] LABS: ERYTHROCYTE SEDIMENTATION RATE 16 MM/HR (0-30)
[2023-03-10] MEDS: NS IV 1000 ML 1,000 ML IV SCH (18:38)
[2023-03-10 18:44] LABS: CLARITY,URINE CLEAR; COLOR,URINE YELLOW
[2023-03-10 18:45] LABS: BACTERIA,URINE TRACE /HPF; BILIRUBIN,URINE NEGATIVE (NEGATIVE); GLUCOSE, URINE (UA) NEGATIVE (NEGATIVE); KETONES,URINE NEGATIVE (NEGATIVE); LEUKOCYTE ESTERASE ,URINE NEGATIVE (NEGATIVE); NITRITE,URINE NEGATIVE (NEGATIVE); PROTEIN,URINE NEGATIVE (NEGATIVE)
[2023-03-10] MEDS ORDERED: methylPREDNISolone INJ 40 MG/ML VIAL IV NR (18:45)
[2023-03-10] MEDS: HYDROmorphone INJECTION 2 MG/ML VIAL IV PRN ×2 (19:26→22:58)
[2023-03-10] MEDS: oxyCODONE IMMEDIATE RELEASE 5 MG TABLET PO PRN ×2 (19:26→22:59)
[2023-03-10] MEDS: DOCUSATE SODIUM 100 MG CAPSULE PO SCH (19:29)
[2023-03-10] MEDS: SENNOSIDES 8.6 MG TABLET PO SCH (19:29)
[2023-03-10 19:44] VITALS: BP 109/56
[2023-03-10] MEDS: methylPREDNISolone INJ 40 MG/ML VIAL IV SCH (22:59)
[2023-03-10 23:01] VITALS: BP 148/70
[2023-03-11] MEDS: HYDROmorphone INJECTION 2 MG/ML VIAL IV PRN ×6 (01:51→21:52)
[2023-03-11] MEDS: oxyCODONE IMMEDIATE RELEASE 5 MG TABLET PO PRN (04:34)
[2023-03-11] MEDS: NS IV 1000 ML 1,000 ML IV SCH (04:34)
[2023-03-11] MEDS: methylPREDNISolone INJ 40 MG/ML VIAL IV SCH ×4 (04:35→23:27)
[2023-03-11 04:36] VITALS: BP 143/68
[2023-03-11 05:40] LABS: BASOPHILS % (AUTO) 0 % (0-10); EOSINOPHILS % (AUTO) 0 % (0-10); HEMATOCRIT 32 % (40-54); HEMOGLOBIN 11.1 g/dL (13.3-17.7); LYMPHOCYTES # (AUTO) 0.8 10^3/uL (1.0-4.0); LYMPHOCYTES % (AUTO) 16 % (12-44); MEAN CORPUSCULAR HEMOGLOBIN 33 pg (25-34); MEAN CORPUSCULAR HGB CONC 35 g/dL (32-36); MEAN CORPUSCULAR VOLUME 95 fL (80-99); MEAN PLATELET VOLUME 9.4 fL (9.0-12.2); MONOCYTES % (AUTO) 1 % (0-12); NEUTROPHILS # (AUTO) 4.3 10^3/uL (1.8-7.8); NEUTROPHILS % (AUTO) 83 % (42-75); PLATELET COUNT 292 10^3/uL (130-400); WHITE BLOOD COUNT 5.2 10^3/uL (4.3-11.0)
[2023-03-11 05:58] LABS: ALBUMIN 4.2 GM/DL (3.2-4.5); BILIRUBIN,TOTAL 1.1 MG/DL (0.1-1.0); CALCIUM 9.3 MG/DL (8.5-10.1); CREATININE SERUM 1.21 MG/DL (0.60-1.30); POTASSIUM 4.4 MMOL/L (3.6-5.0); TOTAL PROTEIN 6.6 GM/DL (6.4-8.2)
[2023-03-11 07:20] VITALS: BP 152/72
--- NOTE | 2023-03-11 07:56 | History & Physical-Hospitalist ---
History of Present Illness Date Seen 03/11/23 Attending Physician Cheyanne Palafox DO PCP Admitting Physician: Cheyanne Palafox DO Attending Physician: Cheyanne Palafox DO Referring Physician Date of Admission Mar 10, 2023 at 16:55 Home Medications & Allergies Home Medications Reviewed patient Home Medication Reconciliation performed by pharmacy medication reconciliations setup technician and/or nursing. Patients Allergies have been reviewed. Allergies Allergies Coded Allergies eptifibatide (Verified Allergy, Mild, BLOOD COUNT DROPS, 12/22/22) Past Izjvjnw-Wzxcqp-Sldsxv Hx Patient Social History Tobacco Use?: No Smoking Status: Never a Smoker Substance use?: No Alcohol Use?: No Pt feels they are or have been: No Immunizations Up To Date Date of Influenza Vaccine: Feb 24, 2023 First/Initial COVID19 Vaccinat: 06/13/20 Second COVID19 Vaccination Levar: 09/29/20 Tetanus Booster (TDap): Unknown Seasonal Allergies Seasonal Allergies: Yes Current Status Advance Directives: No Communicates: Verbally Primary Language: Macedonian Preferred Spoken Language: Macedonian Is interpretation needed?: No Sensory deficits: Vision impairment Implanted or Applied Medical D: Orthopedic hardware, Stents Past Medical History Surgeries: Coronary Stent, Orthopedic Tuberculosis Currently Using CPAP: No Currently Using BIPAP: No Coronary Artery Disease, High Cholesterol, Hypertension Neuropathy Benign Prostatic Hyperpl Gastroesophageal Reflux Degenerate Disk Disease, Arthritis, Chronic Back Pain Hypothyroidsim Cataract Blood Disorders: No Adverse Reaction/Blood Tranf: Yes Physical Exam Physical Exam Vital Signs Vital Signs - First Documented 03/10/23 03/10/23 03/10/23 03/10/23 03/10/23 17:43 17:48 18:08 18:09 18:40 Temp 36.5 Pulse 72 Resp 18 B/P (MAP) 158/69 (98) Pulse Ox 98 O2 Delivery Room Air O2 Flow Rate 0.00 FiO2 21 Capillary Refill : Height, Weight, BMI Height: 5'8.00" Weight: 207lbs. 0.0oz. 93.820332jr; 26.65 BMI Method:Stated Results Results/Procedures Labs Laboratory Tests 03/10/23 17:32 03/11/23 05:07 Patient resulted labs reviewed. ARMOND ELLIOTT MD,RESIDENT Mar 11, 2023 07:56
[2023-03-11] MEDS: DOCUSATE SODIUM 100 MG CAPSULE PO SCH ×2 (08:46→19:58)
[2023-03-11] MEDS: SENNOSIDES 8.6 MG TABLET PO SCH ×2 (08:46→19:58)
[2023-03-11] MEDS: ENOXAPARIN 40 MG/0.4 ML SYRINGE SC SCH (08:46)
[2023-03-11] MEDS ORDERED: PRAMIPEXOLE 0.125 MG TABLET PO NR (11:00)
--- NOTE | 2023-03-11 11:29 | History & Physical ---
YARA ALVAREZ 03/11/23 1129: History of Present Illness History of Present Illness Reason for visit/HPI : CC: Radiculopathy, Restless Leg Syndrome HPI: Manav is an 82 year old male that presented to the MED/SURG unit on 03/10 as a direct admit from Dr. Quach Outpatient office. Manav notes that he has had increased restless legs and numbness in his extremities for the past 6 months. He cannot remember an inciting event that could have caused these changes. He notes that this has been a chronic issue. He notes that he thinks that it is associated with his previous surgeries on his spine in the lumbar and cervical regions. At the outpatient office, Manav appeared acutely ill which prompted further evaluation. Since being in the hospital, he notes that the narcotics, specifically the hydromorphone, has helped. He also says the oxycodone helps. His main issue is the restless legs. He notes that the mirapex has helped, but causes drowsiness. He denies any actions that make the symptoms worse. He also notes some associated R-sided SI joint issues, but no other concerns. He says that overall he feels much better. His family notes that he appears more like himself. He denies any active pain. He has no N/V, headaches, or dizziness. He has no other concerns. All labs have came back normal. Date of Admission Mar 11, 2023 at 10:40 I consulted on this patient on 03/11/23 11:24 Attending Physician Cheyanne Leone DO Admitting Physician Admitting Physician: Cheyanne Leone DO Attending Physician: Cheyanne Leone DO Consult Allergies and Home Medications Allergies Coded Allergies: eptifibatide (Verified Allergy, Mild, BLOOD COUNT DROPS, 12/22/22) Patient Home Medication List Home Medication List Reviewed: Yes Aspirin (Aspirin) 81 Mg Tab.chew, 81 MG PO HS, (Reported) Entered as Reported by: AMINA MENDES on 12/22/22 1421 Last Action: Reviewed Atorvastatin Calcium (Atorvastatin Calcium) 40 Mg Tablet, 40 MG PO DAILY, (Reported) Entered as Reported by: PARKER LENNON on 07/03/20 1625 Last Action: Reviewed Diclofenac Sodium (Diclofenac Sodium) 75 Mg Tablet.dr, 75 MG PO BID, (Reported) Entered as Reported by: AMINA MENDES on 12/22/22 142 Last Action: Reviewed Finasteride (Finasteride) 5 Mg Tablet, 5 MG PO DAILY, (Reported) Entered as Reported by: DAVID AYP on 03/11/231322 Last Action: Reviewed Hydrocodone/Acetaminophen (Hydrocodone-Acetamin 5-325 mg) 5 Mg-325 Mg Tablet, 1 EA PO HS, (Reported) Entered as Reported by: DAVID YAP on 03/11/231322 Last Action: Reviewed Levothyroxine Sodium (Levothyroxine Sodium) 75 Mcg Tablet, 75 MCG PO DAILY, (Reported) Entered as Reported by: RAQUEL QUAN on 08/21/20 1217 Last Action: Reviewed Losartan Potassium (Losartan Potassium) 100 Mg Tablet, 100 MG PO DAILY, (Reported) Entered as Reported by: Nicole Tatum on 03/09/23 104 Last Action: Reviewed Pantoprazole Sodium (Pantoprazole Sodium) 40 Mg Tablet.dr, 40 MG PO BID, (R eported) Entered as Reported by: DAVID YAP on 03/11/231322 Last Action: Reviewed Pramipexole Di-HCl (Pramipexole Dihydrochloride) 0.5 Mg Tablet, 0.5 MG PO HS, (Reported) Entered as Reported by: DAVID YAP on 03/11/231322 Last Action: Reviewed Tamsulosin HCl (Flomax) 0.4 Mg Cap, 0.4 MG PO BID, (Reported) Entered as Reported by: DAVID YAP on 07/04/20 0833 Last Action: Reviewed Triamterene/Hydrochlorothiazid (Triamterene-Hctz 37.5-25 mg Tb) 37.5 Mg-25 Mg Tablet, 1 EA PO DAILY, (Reported) Entered as Reported by: DAVID YAP on 03/11/231322 Last Action: Reviewed Discontinued Medications Diphenhydramine HCl (Allergy Medicine) Unknown Strength Tablet, Unknown Dose PO UD, (Reported) Discontinued Reason: No Longer Taking Entered as Reported by: AMINA MENDES on 12/22/22 142 Finasteride (Finasteride) 5 Mg Tablet, 5 MG PO DAILY Discontinued Reason: No Longer Taking Prescribed by: CHEYANNE LEONE on 07/07/20 1045 Last Action: Discontinued Hydrocodone/Acetaminophen (Hydrocodone-Acetamin 5-325 mg) 5 Mg-325 Mg Tablet, 1 TAB PO Q4H PRN for PAIN-MODERATE (5-7), (Reported) Discontinued Reason: No Longer Taking Entered as Reported by: Nicole Tatum on 03/09/23 104 Last Action: Discontinued Oxymetazoline HCl (Vicks Sinex) 15 Ml [place], 2-3 SPRAYS NSEACH Q12H PRN for CONGESTION, (Reported) Discontinued Reason: No Longer Taking Entered as Reported by: DAVID YAP on 07/04/20 0833 Last Action: Discontinued Oxymetazoline HCl (Sinus Nasal) 0.05 % [place], 30 ML NS UD, (Reported) Discontinued Reason: No Longer Taking Entered as Reported by: AMINA MENDES on 12/22/221420 Last Action: Discontinued Pantoprazole Sodium (Protonix) 40 Mg Tablet.dr, 40 MG PO BID Discontinued Reason: No Longer Taking Prescribed by: CHEYANNE LEONE on 07/07/20 104 Last Action: Discontinued Pramipexole (Mirapex) 0.125 Mg Tablet, 0.125 MG PO HS Discontinued Reason: No Longer Taking Prescribed by: CHEYANNE LEONE on 07/07/20 104 Last Action: Discontinued Sennosides/Docusate Sodium (Stool Softener Tablet) 8.6 Mg-50 Mg Tablet, 1 EACH PO UD, (Reported) Discontinued Reason: No Longer Taking Entered as Reported by: AMINA MENDES on 12/22/22 142 Triamterene/Hydrochlorothiazid (Triamterene-Hctz 37.5-25 mg Cp) 37.5 Mg-25 Mg Capsule, 1 EACH PO DAILY, (Reported) Discontinued Reason: No Longer Taking Entered as Reported by: AMINA MENDES on 12/22/221420 Last Action: Discontinued Past Dgosgrp-Yupryc-Bnnmiv Hx Patient Social History Marrital Status: Employed/Student: retired ([employer] as a [employer] business) Tobacco Use?: No Smoking Status: Never a Smoker Substance use?: No Alcohol Use?: No Pt feels they are or have been: No Immunizations Up To Date Date of Influenza Vaccine: Feb 24, 2023 First/Initial COVID19 Vaccinat: 06/13/20 Second COVID19 Vaccination [place]ar: 09/29/20 Tetanus Booster (TDap): Unknown Seasonal Allergies Seasonal Allergies: Yes Current Status Advance Directives: No Communicates: Verbally Primary Language: Nepali Preferred Spoken Language: Nepali Is interpretation needed?: No Sensory deficits: Vision impairment Implanted or Applied Medical D: Orthopedic hardware, Stents Past Medical History Surgeries: Coronary Stent, Orthopedic Tuberculosis Currently Using CPAP: No Currently Using BIPAP: No Coronary Artery Disease, High Cholesterol, Hypertension Neuropathy Benign Prostatic Hyperpl Gastroesophageal Reflux Degenerate Disk Disease, Arthritis, Chronic Back Pain Hypothyroidsim Cataract Blood Disorders: No Adverse Reaction/Blood Tranf: Yes Review of Systems Constitutional: No chills, No diaphoresis, No dizziness, No fever; weakness; No weight gain, No weight loss EENTM: no symptoms reported Respiratory: no symptoms reported Cardiovascular: no symptoms reported Gastrointestinal: no symptoms reported Genitourinary: no symptoms reported Musculoskeletal: see HPI, muscle twitching, muscle weakness, neck pain Skin: no symptoms reported; No dryness, No lesions, No lumps, No pruritus Psychiatric/Neurological: Numbness, Paresthesia, Tingling, Tremors Physical Exam Vital Signs Vital Signs - First Documented 03/10/23 03/10/23 03/10/23 03/10/23 03/10/23 17:43 17:48 18:08 18:09 18:40 Temp 36.5 Pulse 72 Resp 18 B/P (MAP) 158/69 (98) Pulse Ox 98 O2 Delivery Room Air O2 Flow Rate 0.00 FiO2 21 Capillary Refill : Height, Weight, BMI Height: 5'8.00" Weight: 207lbs. 0.0oz. 93.154956kn; 26.65 BMI Method:Stated General Appearance: No Apparent Distress, WD/WN Eyes: Bilateral Eye Normal Inspection, Bilateral Eye PERRL, Bilateral Eye EOMI HEENT: PERRL/EOMI, Moist Mucous Membranes; No Pale Conjunctivae (L), No Pale Conjunctivae (R) Neck: Full Range of Motion, Normal Inspection, Non Tender, Supple Respiratory: Chest Non Tender, Lungs Clear, Normal Breath Sounds, No Accessory Muscle Use, No Respiratory Distress Cardiovascular: Regular Rate, Rhythm, No Edema, No Gallop, No JVD, No Murmur, Normal Peripheral Pulses Gastrointestinal: Normal Bowel Sounds, No Organomegaly, No Pulsatile Mass, Non Tender, Soft Rectal: Deferred Back: Normal Inspection Extremity: Normal Capillary Refill, Non Tender, No Pedal Edema Neurologic/Psychiatric: Alert, Oriented x3, family services manager II-XII Norm as Tested; No Abnormal Cerebellar Tests, No EOM Palsy, No Facial Droop; Sensory Deficit (notes right sided 4,5 digit diminished sensation ) Reflexes: 2+ Bicep (R), 2+ Bicep (L), 2+ Ankle (R), 2+ Ankle (L) Skin: Normal Color, Warm/Dry Lymphatic: No Adenopathy Assessment/Plan Assessment and Plan 03/11/2023: A/P -Cervical Myleopathy * MRI * hydromorphone, oxycodone * diazepam * methylprednisolone * PT/OT -Restless Leg Syndrome * restart mirapex -HTN * monitor -DVT Prophylaxis * lovenox Admission Diagnosis numbness Admission Status: Inpatient Order (span 2 midnights) Reason for Inpatient Admission: MRI CHEYANNE LEONE 03/12/23 0643: History of Present Illness History of Present Illness Reason for visit/HPI CC: Severe restless syndrome with suspected spinal nerve impingement HPI: This is an 82yoWM clinic patient of [facility] who presented as a direct admit from my office due to severe decompensation from RLS. Apparently the Mirapex was making him lethargic so he decreased it significantly and started having severe RLS symptoms. Sepsis ruled out and cardiac causes. Currently he is doing much better with multiple meds given. He has severe spinal disease. MRI ordered. Date of Admission 03/10/23 Date Seen by a Provider: Mar 11, 2023 Time Seen by a Provider: 11:00 Allergies and Home Medications Allergies Coded Allergies: eptifibatide (Verified Allergy, Mild, BLOOD COUNT DROPS, 12/22/22) Patient Home Medication List Home Medication List Reviewed: Yes Aspirin (Aspirin) 81 Mg Tab.chew, 81 MG PO HS, (Reported) Entered as Reported by: AMINA MENDES on 12/22/22 142 Last Action: Reviewed Atorvastatin Calcium (Atorvastatin Calcium) 40 Mg Tablet, 40 MG PO DAILY, (Reported) Entered as Reported by: PARKER LENNON on 07/03/20 2545 Last Action: Reviewed Diclofenac Sodium (Diclofenac Sodium) 75 Mg Tablet.dr, 75 MG PO BID, (Reported) Entered as Reported by: AMINA MENDES on 12/22/22 1421 Last Action: Reviewed Finasteride (Finasteride) 5 Mg Tablet, 5 MG PO DAILY, (Reported) Entered as Reported by: DAVID YAP on 03/11/23 132 Last Action: Reviewed Hydrocodone/Acetaminophen (Hydrocodone-Acetamin 5-325 mg) 5 Mg-325 Mg Tablet, 1 EA PO HS, (Reported) Entered as Reported by: DAVID YAP on 03/11/231322 Last Action: Reviewed Levothyroxine Sodium (Levothyroxine Sodium) 75 Mcg Tablet, 75 MCG PO DAILY, (Reported) Entered as Reported by: RAQUEL QUAN on 08/21/20 1217 Last Action: Reviewed Losartan Potassium (Losartan Potassium) 100 Mg Tablet, 100 MG PO DAILY, (Reported) Entered as Reported by: Nicole Tatum on 03/09/23 104 Last Action: Reviewed Pantoprazole Sodium (Pantoprazole Sodium) 40 Mg Tablet.dr, 40 MG PO BID, (Reported) Entered as Reported by: DAVID YAP on 03/11/231322 Last Action: Reviewed Pramipexole Di-HCl (Pramipexole Dihydrochloride) 0.5 Mg Tablet, 0.5 MG PO HS, (Reported) Entered as Reported by: DAVID YAP on 03/11/231322 Last Action: Reviewed Tamsulosin HCl (Flomax) 0.4 Mg Cap, 0.4 MG PO BID, (Reported) Entered as Reported by: DAVID YAP on 07/04/20 0833 Last Action: Reviewed Triamterene/Hydrochlorothiazid (Triamterene-Hctz 37.5-25 mg Tb) 37.5 Mg-25 Mg Tablet, 1 EA PO DAILY, (Reported) Entered as Reported by: DAVID YAP on 03/11/231322 Last Action: Reviewed Discontinued Medications Diphenhydramine HCl (Allergy Medicine) Unknown Strength Tablet, Unknown Dose PO UD, (Reported) Discontinued Reason: No Longer Taking Entered as Reported by: AMINA MENDES on 12/22/22 1421 Finasteride (Finasteride) 5 Mg Tablet, 5 MG PO DAILY Discontinued Reason: No Longer Taking Prescribed by: CHEYANNE LEONE on 07/07/20 1045 Last Action: Discontinued Hydrocodone/Acetaminophen (Hydrocodone-Acetamin 5-325 mg) 5 Mg-325 Mg Tablet, 1 TAB PO Q4H PRN for PAIN-MODERATE (5-7), (Reported) Discontinued Reason: No Longer Taking Entered as Reported by: Nicole Tatum on 03/09/23 104 Last Action: Discontinued Oxymetazoline HCl (Vicks Sinex) 15 Ml [place], 2-3 SPRAYS NSEACH Q12H PRN for CONGESTION, (Reported) Discontinued Reason: No Longer Taking Entered as Reported by: DAVID YAP on 07/04/20 0833 Last Action: Discontinued Oxymetazoline HCl (Sinus Nasal) 0.05 % [place], 30 ML NS UD, (Reported) Discontinued Reason: No Longer Taking Entered as Reported by: AMINA MENDES on 12/22/221420 Last Action: Discontinued Pantoprazole Sodium (Protonix) 40 Mg Tablet.dr, 40 MG PO BID Discontinued Reason: No Longer Taking Prescribed by: CHEYANNE LEONE on 07/07/20 104 Last Action: Discontinued Pramipexole (Mirapex) 0.125 Mg Tablet, 0.125 MG PO HS Discontinued Reason: No Longer Taking Prescribed by: CHEYANNE LEONE on 07/07/201044 Last Action: Discontinued Sennosides/Docusate Sodium (Stool Softener Tablet) 8.6 Mg-50 Mg Tablet, 1 EACH PO UD, (Reported) Discontinued Reason: No Longer Taking Entered as Reported by: AMINA MENDES on 12/22/221420 Triamterene/Hydrochlorothiazid (Triamterene-Hctz 37.5-25 mg Cp) 37.5 Mg-25 Mg Capsule, 1 EACH PO DAILY, (Reported) Discontinued Reason: No Longer Taking Entered as Reported by: AMINA MENDES on 12/22/221420 Last Action: Discontinued Past Ihsypyh-Bwzbvo-Aphisv Hx Patient Social History Marrital Status: 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) Smoking Status: Never a Smoker Past Medical History Surgeries: Coronary Stent Coronary Artery Disease, High Cholesterol, Hypertension Neuropathy Gastroesophageal Reflux Arthritis, Chronic Back Pain Review of Systems Constitutional: see HPI Physical Exam General Appearance: No Apparent Distress, WD/WN Respiratory: Lungs Clear, Normal Breath Sounds Cardiovascular: Regular Rate, Rhythm Neurologic/Psychiatric: Alert, Oriented x3, Other (constant leg movement) Assessment/Plan Assessment and Plan Severe RLS following wean of Mirapex on his own Spinal disease suspected spinal nerve impingement HTN HLP CAD GERD OA Plan: Pain meds Supportive care Cant mobilize MRI Admission Diagnosis Admission Status: Inpatient Order (span 2 midnights) Reason for Inpatient Admission: can't ambulate and constant RLS will require MRI and eval for impending spinal cord injury Supervisory-Addendum Brief Verification & Attestation Participated in pt care: history, MDM, physical Personally performed: exam, history, MDM, supervision of care Care discussed with: Medical Student Procedures: n/a Results interpretation: Verified all documentation Verification and Attestation of Medical Student E/M Service A medical student performed and documented this service in my presence. I revie wed and verified all information documented by the medical student and made modifications to such information, when appropriate. I personally performed the physical exam and medical decision making. Cheyanne Leone Mar 12, 2023,06:43 YARA ALVAREZ Mar 11, 2023 11:29 CHEYANNE LEONE DO Mar 12, 2023 06:43
[2023-03-11 11:49] VITALS: BP 157/54
--- NOTE | 2023-03-11 13:22 | Occupational Therapy Eval ---
OT Evaluation-General/PLF Medical Diagnosis Admission Date Mar 11, 2023 at 10:40 Medical Diagnosis: radiculopathy Onset Date: Mar 11, 2023 Therapy Diagnosis Therapy Diagnosis: REstless laeg syndrome, Height/Weight Height (Feet): 5 Height (Inches): 8.00 Weight (Pounds): 207 Weight (Ounces): 0.0 Precautions Precautions/Isolations: Fall Prevention, Standard Precautions Medical History Pertinent Medical History: HTN, Hypothroidism, Neuropathy Current History scheduled for rotator cuff surgery next week, multiple back/spinal surgeries. Reviewed History: Yes Social History Home: Single Level Current Living Status: Spouse Entry Into Home: Ramp (usese ramp more than steps), Stairs With Railing ADL-Prior Level of Function SCALE: Activities may be completed with or without assistive devices. 0-Dpqmndiydv-wfqexkh completes the activity by him/herself with no assistance from a helper. 5-Set-up or Clean-up Assistance-helper sets up or cleans up; patient completes activity. [place] assists only prior to or following the activity. 4-Supervision or Touching Assistance-helper provides verbal cues and/or touching/steadying and/or contact guard assistance as patient completes activity. Assistance may be provided throughout the activity or intermittently. 3-Partial/Moderate Assistance-helper does LESS THAN HALF the effort. [place] lif ts, holds or supports trunk or limbs, but provides less than half the effort. 2-Substantial/Maximal Assistance-helper does MORE THAN HALF the effort. [place] lifts or holds trunk or limbs and provides more than half the effort. 1-Nvwpxdzmi-ppmrth does ALL the effort. Patient does none of the effort to complete the activity. Or, the assistance of 2 or more helpers is required for the patient to complete the activity. If activity was not attempted, code reason: 7-Patient Refused. 9-Not Applicable-not attempted and the patient did not perform the activity before the current illness, exacerbation or injury. 10-Not Attempted due to Environmental Limitations-(lack of equipment, weather restraints, etc.). 88-Not Attempted due to Medical Conditions or Safety Concerns. Self Care: Independent (long time to perform, OT recommended button hook and sock aid) Functional Cognition: Independent DME/Equipment: Bath Chair, Grab Bars, Shower DME/Equipment Comments uses two canes Drive Self: No (falls asleep, not driving) OT Current Status Subjective Agreeable to OT Pain Numeric Pain Scale: 0-No Pain (currently) Mental Status/Objective Patient Orientation: Person, Place, Time, Situation Current Upper Extremity ROM BUE ROM WFLs Upper Extremity Coordination WFLs Upper Extremity Strength 4/5 ADL-Treatment Eating (QC): 6 Oral Hygiene (QC): 6 Shower/Bathe Self (QC): 7 Upper Body Dressing (QC): 6 Lower Body Dressing (QC): 6 On/Off Footwear (QC): 6 Toileting Hygiene (QC): 6 Education OT Patient Education: Correct positioning, Exercise program, Instructions to caregiver, Modified ADL techniques, Progress toward Goal/Update tx plan, Purpose of tx/functional activities, Reviewed precautions, Rehab process, Safety issues, Transfer techniques, Use of adapted equipment Teaching Recipient: Patient, Family Teaching Methods: Demonstration Response to Teaching: Verbalize Understanding, Return Demonstration OT Residential Goals [place] Captain Goals 1=Demonstrate adherence to instructed precautions during ADL tasks. 2=Patient will verbalize/demonstrate understanding of assistive devices/modif ications for ADL. 3=Patient will improve strength/tolerance for activity to enable patient to perform ADL's. OT Education/Plan Problem List/Assessment Assessment: No Skilled OT Needs ID'd Discharge Recommendations Plan/Recommendations: Discontinue OT Treatment Plan/Plan of Care Treatment,Training & Education: Yes Patient would benefit from OT for education, treatment and training to promote independence in ADL's, mobility, safety and/or upper extremity function for ADL's. Plan of Care: OTHER Treatment Duration: Mar 11, 2023 Frequency: 1 time per week Estimated Hrs Per Day: .25 hour per day Agreement: Yes Rehab Potential: Good Time Start Time: 12:00 Stop Time: 12:15 DATE: Mar 11, 2023 Total Time Billed (hr/min): 15 Billed Treatment Time EVM 15 ZACHARY ALLEN OT Mar 11, 2023 13:22
[2023-03-11] MEDS ORDERED: PRAM0.5T9 PO ×2 (13:23)
[2023-03-11] MEDS ORDERED: PANT40TA52 PO ×2 (13:23)
[2023-03-11] MEDS ORDERED: ACHD5005 PO ×2 (13:23)
[2023-03-11] MEDS ORDERED: FINA5TAB6 PO ×2 (13:23)
[2023-03-11] MEDS ORDERED: TRIA1TAB3 PO ×2 (13:23)
--- NOTE | 2023-03-11 13:28 | Physical Therapy Evaluation ---
PT Evaluation-General Medical Diagnosis Admission Date Mar 11, 2023 at 10:40 Medical Diagnosis: Radiculopathy Onset Date: Mar 11, 2023 Therapy Diagnosis Therapy Diagnosis: debility Height/Weight Height (Feet): 5 Height (Inches): 8.00 Weight (Pounds): 207 Weight (Ounces): 0.0 Precautions Precautions/Isolations: Fall Prevention, Standard Precautions Referral Physician: Vivienne Reason for Referral: Evaluation/Treatment Medical History Pertinent Medical History: HTN, Hypothroidism Additional Medical History restless leg syndrome Current History Admit due to uncontrolled LE movement. Reviewed History: Yes Social History Home: Single Level Current Living Status: Spouse Entry Into Home: Ramp Prior Prior Level of Function SCALE: Activities may be completed with or without assistive devices. 2-Xprmkttqne-jdrvzbx completes the activity by him/herself with no assistance from a helper. 5-Set-up or Clean-up Assistance-helper sets up or cleans up; patient completes activity. [place] assists only prior to or following the activity. 4-Supervision or Touching Assistance-helper provides verbal cues and/or touching/steadying and/or contact guard assistance as patient completes activity. Assistance may be provided throughout the activity or intermittently. 3-Partial/Moderate Assistance-helper does LESS THAN HALF the effort. [place] lifts, holds or supports trunk or limbs, but provides less than half the effort. 2-Substantial/Maximal Assistance-helper does MORE THAN HALF the effort. [place] lifts or holds trunk or limbs and provides more than half the effort. 5-Ueehpgsmk-xonscj does ALL the effort. Patient does none of the effort to complete the activity. Or, the assistance of 2 or more helpers is required for the patient to complete the activity. If activity was not attempted, code reason: 7-Patient Refused. 9-Not Applicable-not attempted and the patient did not perform the activity before the current illness, exacerbation or injury. 10-Not Attempted due to Environmental Limitations-(lack of equipment, weather restraints, etc.). 88-Not Attempted due to Medical Conditions or Safety Concerns. Bed Mobility: 6 Transfers (B,C,W/C): 6 Gait: 6 Indoor Mobility (Ambulation): Independent Prior Devices Use: Other-see list below Prior Device Use: 2 canes PT Evaluation-Current Subjective Patient agrees to therapy. Family present. Objective Patient Orientation: Normal For Age ROM/Strength ROM Lower Extremities bilateral LE WFL Strength Lower Extremities 4/5 grossly bilateral LE all planes Integumentary/Posture Bowel Incontinence: No Bladder Incontinence: No Posture slight trunk flexed posture Neuromuscular (Tone, Coordination, Reflexes) grossly intact Sensory Vision: Functional Hearing: Functional Transfers Sit to Lying (QC): 6 Lying to Sitting/Side of Bed(Q: 6 Sit to Stand (QC): 6 Gait Mode of Locomotion: Walk Anticipated Mode of Locomotion: Walk Walk 10 feet (QC): 6 Walk 50 ft with 2 Turns(QC): 6 Walk 150 ft (QC): 6 Distance: 500' Gait Assistive Device: FWW Comments/Gait Description use of FWW vs 2 canes for improved balance Balance Sitting Static: Normal Sitting Dynamic: Normal Standing Static: Normal Standing Dynamic: Normal Assessment/Needs Patient is currently at [facility] with all gross motor skills safely and does not require skilled PT intervention at this time. Rehab Potential: Fair PT Plan Treatment/Plan Treatment Plan: Discontinue PT Treatment Duration: Mar 11, 2023 Frequency: 1 time per week Estimated Hrs Per Day: .25 hour per day Patient and/or Family Agrees t: Yes Time Time In: 1235 Time Out: 1250 DATE: Mar 11, 2023 Total Billed Treatment Time: 15 Total Billed Treatment 1 visit EVMod 15 min LARISSA SHANNON PT Mar 11, 2023 13:28
--- NOTE | 2023-03-11 14:32 | Diagnostic Imaging Report ---
PROCEDURE: MR imaging cervical spine without contrast. TECHNIQUE: Multiplanar, multisequence MR imaging of the cervical spine was performed without contrast. INDICATION: Neck pain. Hand numbness. COMPARISON: 03/04/2023. FINDINGS: No acute fracture or dislocation is seen in the cervical spine. There is straightening of the cervical spine. ACDF changes are visualized from C3 to C5. Grade 1 anterolisthesis of C7 on T1 is noted. The vertebral body heights are well maintained. The bone marrow signal is unremarkable. No focal osseous lesions. The craniocervical junction is maintained. The cervical spinal cord demonstrates normal intrinsic signal. No epidural collections are seen. The included brainstem and posterior fossa have normal appearance. Multilevel degenerative changes are seen in the cervical spine with posterior disc bulges and uncovertebral arthropathy. C2-C3: Broad-based disc bulge, facet hypertrophy, and buckling of the ligamentum flavum results in severe spinal canal stenosis and severe bilateral foraminal stenosis. C3-C4: Disc osteophyte complex and uncovertebral arthropathy results in mild spinal canal narrowing and moderate right and mild left foraminal stenosis. C4-C5: Disc osteophyte complex and uncovertebral arthropathy results in no significant spinal canal narrowing and moderate right and vnap-[id number]-oodcsldz left foraminal stenosis. C5-C6: Marginal osteophytes and uncovertebral arthropathy results in mild spinal canal narrowing and kxyw-im-gwwvmsee right and tovpwlts-eg-swcrot left foraminal stenosis. C6-C7: Posterior disc bulge, uncovertebral arthropathy, and buckling of the ligamentum flavum results in severe spinal canal stenosis and moderate bilateral foraminal stenosis. C7-T1: No significant spinal canal or foraminal stenosis. The soft tissues of neck are unremarkable. IMPRESSION: 1. No acute fracture or dislocation of the cervical spine. 2. Multilevel degenerative changes in the cervical spine, greatest at C2-C3 and C6-C7. 3. Grade 1 anterolisthesis of C7 on T1. Dictated by: Dictated on workstation # [id number]
--- NOTE | 2023-03-11 14:57 | Diagnostic Imaging Report ---
PROCEDURE: MRI lumbar spine without contrast. TECHNIQUE: Multiplanar, multisequence MRI of the lumbar spine was performed without contrast. INDICATION: Low back pain. Leg pain. COMPARISON: 02/15/2020. FINDINGS: 5 lumbar type vertebral bodies are visualized with the last well-formed disc space designated L5-S1. No acute fracture or dislocation is seen in the lumbar spine. There is straightening of the lumbar spine with grade 1 anterolisthesis of L4 on L5. Vertebral body heights are well-maintained. Laminectomy is seen from L3 to L5. Modic type I endplate degenerative changes are present at the L4-L5 level. The conus terminates at the L1 level. No masses are seen associated with the conus or nerve roots of the cauda equina. No epidural collections are identified. Multilevel degenerative changes are seen in the lumbar spine with disc bulges, facet hypertrophy, and buckling of the ligamentum flavum. T12-L1: Broad-based disc bulge and facet hypertrophy results in mild spinal canal narrowing and mild to moderate bilateral foraminal stenosis. L1-L2: Broad-based disc bulge, facet hypertrophy, and buckling of the ligamentum flavum results in mild to moderate spinal canal narrowing and moderate bilateral foraminal stenosis. L2-L3: Broad-based disc bulge with left subarticular protrusion, facet hypertrophy, and buckling of the ligamentum flavum results in moderate spinal canal stenosis and moderate right and severe left foraminal stenosis. L3-L4: Broad-based disc bulge, facet hypertrophy, and buckling of the ligamentum flavum results in no significant spinal canal narrowing and severe bilateral foraminal stenosis. L4-L5: Broad-based disc bulge, facet hypertrophy, and buckling of the ligamentum flavum results in mild spinal canal narrowing and severe right and moderate to severe left foraminal stenosis. L5-S1: Broad-based disc bulge, facet hypertrophy, and buckling of the ligamentum flavum results in mild spinal canal narrowing and moderate to severe bilateral foraminal stenosis. Paravertebral soft tissues are unremarkable. IMPRESSION: 1. No acute fracture or dislocation in the lumbar spine. 2. Advanced degenerative changes throughout the lumbar spine. 3. Modic type I endplate degenerative changes at the L4-L5 level. 4. Grade 1 anterolisthesis of L4 on L5. Dictated by: Dictated on workstation # [id number]
[2023-03-11 15:44] VITALS: BP 114/68
[2023-03-11 19:25] VITALS: BP 136/62
[2023-03-11] MEDS: diazePAM 5 MG TABLET PO PRN (19:58)
[2023-03-11 23:25] VITALS: BP 120/60
[2023-03-12 03:29] VITALS: BP 121/61
[2023-03-12] MEDS: diazePAM 5 MG TABLET PO PRN (03:30)
[2023-03-12 05:29] LABS: BASOPHILS % (AUTO) 0 % (0-10); EOSINOPHILS % (AUTO) 0 % (0-10); HEMATOCRIT 30 % (40-54); HEMOGLOBIN 10.1 g/dL (13.3-17.7); LYMPHOCYTES # (AUTO) 1.3 10^3/uL (1.0-4.0); LYMPHOCYTES % (AUTO) 7 % (12-44); MEAN CORPUSCULAR HEMOGLOBIN 32 pg (25-34); MEAN CORPUSCULAR HGB CONC 34 g/dL (32-36); MEAN CORPUSCULAR VOLUME 95 fL (80-99); MEAN PLATELET VOLUME 9.5 fL (9.0-12.2); MONOCYTES # (AUTO) 0.4 10^3/uL (0.0-1.0); MONOCYTES % (AUTO) 2 % (0-12); NEUTROPHILS # (AUTO) 15.7 10^3/uL (1.8-7.8); NEUTROPHILS % (AUTO) 89 % (42-75); PLATELET COUNT 264 10^3/uL (130-400); WHITE BLOOD COUNT 17.5 10^3/uL (4.3-11.0)
[2023-03-12 05:47] LABS: ALBUMIN 3.8 GM/DL (3.2-4.5); BILIRUBIN,TOTAL 0.6 MG/DL (0.1-1.0); CALCIUM 8.8 MG/DL (8.5-10.1); CREATININE SERUM 1.09 MG/DL (0.60-1.30); POTASSIUM 4.1 MMOL/L (3.6-5.0); TOTAL PROTEIN 5.6 GM/DL (6.4-8.2)
[2023-03-12 06:02] LABS: LYMPHOCYTES % (MANUAL) 7 %; MONOCYTES % (MANUAL) 1 %; NEUTROPHILS % (MANUAL) 92 %; RBC MORPH NORMAL
[2023-03-12] MEDS: methylPREDNISolone INJ 40 MG/ML VIAL IV SCH (06:27)
[2023-03-12 07:53] VITALS: BP 130/61
[2023-03-12] MEDS: DOCUSATE SODIUM 100 MG CAPSULE PO SCH (08:40)
[2023-03-12] MEDS: SENNOSIDES 8.6 MG TABLET PO SCH (08:40)
[2023-03-12] MEDS: ENOXAPARIN 40 MG/0.4 ML SYRINGE SC SCH (08:40)
[2023-03-12] MEDS ORDERED: ACET-2267 PO ×2 (11:29)
[2023-03-12] MEDS ORDERED: OXYC5TAB PO ×2 (11:29)
[2023-03-12 11:40] VITALS: BP 143/63
[2023-03-12 12:11] VITALS: BP 143/63
--- NOTE | 2023-03-13 18:45 | Discharge Summary ---
Discharge Summary Hospital Course Problems/Dx: (1) Radiculopathy due to disorder of intervertebral disc of lumbar spine Status: Acute Hospital Course Date of Admission: Mar 11, 2023 at 10:40 Admission Diagnosis : Radiculopathy Family Physician/Provider: Cheyanne Palafox DO Date of Discharge: 03/12/23 Discharge Diagnosis: Radiculopathy Hospital Course: Manav Gustafson is an 82 year old male who was admitted with radiculopathy. He has been having increased restlessness and numbnes in his legs. His symptoms improved with pain medication. He was able to ambulate with a walker and canes. He underwent an MRI which showed multilevel degenerative disease of both the lumbar and cervical spine. He also had anterolithesis of L4 on L5 and C7 on T1. He wanted to go home but requested some pain medication. He was given a prescription for oxycodone. He should follow up with his PCP next week. He will likely need a referral to orthopedic surgery. He was discharged home in stable condition. Labs and Pending Lab Test: Microbiology 03/10/23 Urine Culture - Final, Complete NO GROWTH 03/10/23 Blood Culture - Preliminary, Resulted Home Meds Active Oxycodone HCl 5 Mg Tablet 5 Mg PO TID 7 Days TAKE THREE TIMES DAILY SCHEDULED AND THREE TIMES DAILY NEEDED Tylenol Extra Strength (Acetaminophen) 500 Mg Tablet 1,000 Mg PO TID 30 Days Reported Pramipexole Dihydrochloride (Pramipexole Di-HCl) 0.5 Mg Tablet 0.5 Mg PO HS Triamterene-Hctz 37.5-25 mg Tb (Triamterene/Hydrochlorothiazid) 37.5 Mg-25 Mg Tablet 1 Ea PO DAILY Finasteride 5 Mg Tablet 5 Mg PO DAILY Pantoprazole Sodium 40 Mg Tablet.dr 40 Mg PO BID Losartan Potassium 100 Mg Tablet 100 Mg PO DAILY Aspirin 81 Mg Tab.chew 81 Mg PO HS Diclofenac Sodium 75 Mg Tablet.dr 75 Mg PO BID Levothyroxine Sodium 75 Mcg Tablet 75 Mcg PO DAILY Flomax (Tamsulosin HCl) 0.4 Mg Cap 0.4 Mg PO BID Atorvastatin Calcium 40 Mg Tablet 40 Mg PO DAILY Assessment/Pt Instructions see instructions Discharge Planning: <30 minutes discharge planning Discharge Instructions Discharge Diet: No Restrictions Activity as Tolerated: Yes Discharge Physical Examination Vital Signs Vital Signs Date Time Temp Pulse Resp B/P (MAP) Pulse Ox O2 Delivery O2 Flow Rate FiO2 03/12/23 12:11 36.6 68 16 143/63 95 Room Air 03/10/23 18:40 0.00 21 General Appearance: No Apparent Distress, WD/WN Respiratory: Lungs Clear, No Respiratory Distress Cardiovascular: Regular Rate, Rhythm, No Murmur Gastrointestinal: Normal Bowel Sounds, Soft Extremity: Normal Inspection, No Pedal Edema Neurologic/Psychiatric: Alert, Normal Mood/Affect Allergies: Coded Allergies: eptifibatide (Verified Allergy, Mild, BLOOD COUNT DROPS, 12/22/22) Copy Copies To 1: CHEYANNE PALAFOX DO Discharge Summary Date of Admission Mar 11, 2023 at 10:40 Date of Discharge Mar 12, 2023 at 12:12 Discharge Date: Mar 12, 2023 Discharge Time: 12:12 Admission Diagnosis Radiculopathy Discharge Diagnosis (1) Radiculopathy due to disorder of intervertebral disc of lumbar spine Status: Acute MICHAEL ZHANG MD Mar 13, 2023 18:41
== END 2023-03-12 12:12 | disposition home or self-care (01) | DRG 552 ==
LOC: 4TH 16:55 → OBSVTOIN 03-11 10:40
PROVIDERS: ADMIT Internal Medicine; ATTEND Internal Medicine
DX: M54.16 Radiculopathy, lumbar region (principal); M50.01 Cervical disc disorder with myelopathy, high cervical region; Z79.82 Long term (current) use of aspirin; Z79.899 Other long term (current) drug therapy; Z95.5 Presence of coronary angioplasty implant and graft; I25.10 Atherosclerotic heart disease of native coronary artery without angina pectoris; E78.00 Pure hypercholesterolemia, unspecified; G62.9 Polyneuropathy, unspecified; I10 Essential (primary) hypertension; N40.0 Benign prostatic hyperplasia without lower urinary tract symptoms; K21.9 Gastro-esophageal reflux disease without esophagitis; M19.90 Unspecified osteoarthritis, unspecified site; G89.29 Other chronic pain; M54.9 Dorsalgia, unspecified; E03.9 Hypothyroidism, unspecified; G25.81 Restless legs syndrome
CPT/HCPCS: 36415; 71045; 72141; 72148; 80053; 81000; 82550; 83605; 83615; 84443; 84484; 85007; 85025; 85027; 85379; 85610; 85652; 85730; 86141; 87040; 87088; G0378

== ENCOUNTER → 2023-03-28 | Outpatient (CLI) | payer MEDICARE ==
[~2023-03-28] MED LIST changes: +ACET-2267 PO; +OXYC5TAB PO; +PANT40TA52 PO; +PRAM0.5T9 PO; +TRIA1TAB3 PO
--- NOTE | 2023-03-28 09:29 | Diagnostic Imaging Report ---
PROCEDURE: MR imaging cervical spine without contrast. TECHNIQUE: Multiplanar, multisequence MR imaging of the cervical spine was performed without contrast. INDICATION: Neck pain. Bilateral upper extremity weakness and numbness. COMPARISON: 03/11/2023. FINDINGS: No acute fracture or dislocation is seen in the cervical spine. Stable ACDF changes from C3 to C5. No change since the exam 17 days ago. Stable severe spinal canal stenosis at the C2-C3 level. Additional advanced degenerative changes are seen in the cervical spine which is unchanged. No new abnormal signal seen in the cervical spinal cord. 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 No epidural collection. IMPRESSION: 1. No acute fracture or dislocation of the cervical spine. 2. Stable severe spinal canal stenosis at the C2-C3 level. Dictated by: Dictated on workstation # [id number]
== END ==
LOC: RAD 07:30
PROVIDERS: ATTEND Internal Medicine
DX: M48.02 Spinal stenosis, cervical region (principal)
CPT/HCPCS: 72141

== ENCOUNTER 2023-04-13 11:37 | Outpatient (CLI) | payer MEDICARE ==
[~2023-04-13] VITALS: Ht 173 cm; Wt 82.1 kg
[~2023-04-13 11:37] MED LIST changes: +NS (IVPB) 250 ML 250 ML IV ONE; +NS IV 1000 ML 1,000 ML IV SCH
[2023-04-13 12:04] VITALS: BP 162/68
== END 2023-04-13 15:50 ==
LOC: 4TH 11:37 → 4THo 11:37
PROVIDERS: ATTEND Internal Medicine
DX: N17.9 Acute kidney failure, unspecified (principal)
CPT/HCPCS: 96360; 96361

== ENCOUNTER → 2023-04-13 | Outpatient (CLI) | payer MEDICARE ==
[2023-04-13 11:24] LABS: BASOPHILS % (AUTO) 1 % (0-10); EOSINOPHILS % (AUTO) 0 % (0-10); HEMATOCRIT 28 % (40-54); HEMOGLOBIN 9.8 g/dL (13.3-17.7); LYMPHOCYTES # (AUTO) 1.8 10^3/uL (1.0-4.0); LYMPHOCYTES % (AUTO) 22 % (12-44); MEAN CORPUSCULAR HEMOGLOBIN 33 pg (25-34); MEAN CORPUSCULAR HGB CONC 35 g/dL (32-36); MEAN CORPUSCULAR VOLUME 93 fL (80-99); MEAN PLATELET VOLUME 8.4 fL (9.0-12.2); MONOCYTES # (AUTO) 0.8 10^3/uL (0.0-1.0); MONOCYTES % (AUTO) 10 % (0-12); NEUTROPHILS # (AUTO) 5.5 10^3/uL (1.8-7.8); NEUTROPHILS % (AUTO) 67 % (42-75); PLATELET COUNT 238 10^3/uL (130-400); WHITE BLOOD COUNT 8.2 10^3/uL (4.3-11.0)
[2023-04-13 11:43] LABS: ALBUMIN 3.8 GM/DL (3.2-4.5); BILIRUBIN,TOTAL 0.7 MG/DL (0.1-1.0); CALCIUM 8.8 MG/DL (8.5-10.1); CREATININE SERUM 1.31 MG/DL (0.60-1.30); POTASSIUM 5.1 MMOL/L (3.6-5.0); TOTAL PROTEIN 5.8 GM/DL (6.4-8.2)
== END ==
LOC: LAB 11:06
PROVIDERS: ATTEND Internal Medicine
DX: N17.9 Acute kidney failure, unspecified (principal); D64.9 Anemia, unspecified
CPT/HCPCS: 36415; 80053; 85025